=== PATIENT | male | born 1945 | race Caucasian/White ===

== ENCOUNTER 2019-06-01 12:26 | Outpatient (CLI) | payer OTHER, SELFPAY ==
--- NOTE | 2019-06-01 12:33 | XR_ITS ---
WS: [id number] RIGHT RIBS, MULTIPLE VIEWS WITH PA CHEST HISTORY: accidental fall COMPARISON: None available. Lungs and mediastinum: Eventration of the RIGHT hemidiaphragm. Lungs are clear. No pneumothorax or pu lmonary contusion. Ribs: Very slight irregularity involving the anterior RIGHT 10th rib could be a nondisplaced fracture . XR/XR ribs RT mn 3V w CXR1V [id number] IMPRESSION: Suspect anterior RIGHT 10th rib fracture. Correlate with area of tenderness.
--- NOTE | 2019-06-01 12:34 | XR_ITS ---
WS: [id number] RIGHT SHOULDER: 3 VIEW(S) TECHNIQUE: Internal and external rotation with Y view. HISTORY: accidental fall COMPARISON: None available. No fracture or dislocation or soft tissue abnormality. Mild AC joint and glenohumeral joint arthritis. XR/XR shoulder RT min 2V* [id number] IMPRESSION: No acute RIGHT shoulder fracture identified.
--- NOTE | 2019-06-01 12:34 | XR_ITS ---
WS: [id number] RIGHT HAND: 3 VIEW(S) TECHNIQUE: PA, oblique and lateral. HISTORY: Accidental fall. COMPARISON: None available. No acute fracture or dislocation. Interphalangeal joint space narrowing from arthritis. Moderate degenerative arthritis at the first ca rpometacarpal joint. XR/XR hand RT min 3V* [id number] IMPRESSION: 1. No RIGHT hand fracture. 2. Osteoarthritis.
== END 2019-06-01 12:27 | disposition home or self-care (01) ==
LOC: RAD 12:32
PROVIDERS: Visit Provider Nurse Practitioner Family
DX: M19.041 Primary osteoarthritis, right hand; S22.31XA Fracture of one rib, right side, initial encounter for closed fracture; M25.511 Pain in right shoulder; W10.8XXA Fall (on) (from) other stairs and steps, initial encounter
CPT/HCPCS: 71101; 73030; 73130

== ENCOUNTER 2019-11-17 14:42 | Outpatient (CLI) | payer OTHER, SELFPAY ==
--- NOTE | 2019-11-17 14:49 | US_ITS ---
WS: [id number] RENAL ULTRASOUND HISTORY: CHRONIC KIDNEY DZ-STAGE 3 COMPARISON: None available. TECHNIQUE: 2-D and color Doppler imaging of the kidney submitted. Right kidney: 9.1 cm x 5.7 cm x 5.1 cm. Normal echogenicity with no hydronephrosis or mass. Left kidney: 9.5 cm x 4.5 cm x 5.5 cm. Normal size kidney. Exophytic cyst from the mid kidney measures 3.1 x 2.8 x 3.8 cm. No solid mass or obstruction. Aorta: Normal. Urinary Bladder: Normal distention. US/US renal BI* [id number] IMPRESSION: 1. No significant renal atrophy or obstruction. 2. Simple LEFT renal cyst maximum diameter 3.1 cm. 3. Negative urinary bladder.
== END 2019-11-17 14:43 | disposition home or self-care (01) ==
LOC: RAD 14:45
PROVIDERS: Visit Provider Registered Nurse
DX: N28.1 Cyst of kidney, acquired; N18.30 Chronic kidney disease, stage 3 unspecified
CPT/HCPCS: 76770

== ENCOUNTER → 2020-06-13 09:45 | Outpatient (BNVA) | payer OTHER, SELFPAY | PROVIDERS: Visit Provider Family Medicine Adult Medicine | DX: M79.89 Other specified soft tissue disorders (principal); M79.662 Pain in left lower leg | CPT/HCPCS: 73590 ==

== ENCOUNTER → 2021-01-24 12:33 | Outpatient (BNVA) | payer OTHER, SELFPAY | PROVIDERS: Visit Provider Internal Medicine | DX: E11.65 Type 2 diabetes mellitus with hyperglycemia (principal); Z86.73 Personal history of transient ischemic attack (TIA), and cerebral infarction without residual deficits; Z79.4 Long term (current) use of insulin; Z87.891 Personal history of nicotine dependence | CPT/HCPCS: 99204 ==

== ENCOUNTER → 2021-04-25 13:17 | Outpatient (BNVA) | payer OTHER, SELFPAY | PROVIDERS: Visit Provider Internal Medicine | DX: E11.65 Type 2 diabetes mellitus with hyperglycemia (principal); Z86.73 Personal history of transient ischemic attack (TIA), and cerebral infarction without residual deficits; Z79.4 Long term (current) use of insulin; Z79.84 Long term (current) use of oral hypoglycemic drugs; Z87.891 Personal history of nicotine dependence | CPT/HCPCS: 99214 ==

== ENCOUNTER 2023-07-30 22:16 | Inpatient (IN) | payer OTHER, MEDICARE, MEDICAID, SELFPAY ==
[2023-07-30 22:18] VITALS: BP 112/81; PULSE 110; RESP 28; O2SAT 94
--- NOTE | 2023-07-30 22:19 | XRR_ITS ---
PROCEDURE INFORMATION: Exam: XR Chest Exam date and time: 07/30/2023 10:31 PM Age: 77 years old Clinical indication: Other: Respiratory distress; Additional info: Dyspnea TECHNIQUE: Imaging protocol: Radiologic exam of the chest. Views: 1 view. COMPARISON: CR XR ribs RT mn 3V w CXR1V [id number] 06/01/2019 12:38 PM FINDINGS: Lungs: Bilateral airspace opacifications suggestive of alveolar edema and/or bronchopneumonia, please correlate clinically. Pleural spaces: Trace right pleural effusion. Heart/Mediastinum: Unremarkable. No cardiomegaly. Bones/joints: Unremarkable. XR/XR chest 1V portable [id number] IMPRESSION: 1. Bilateral airspace opacifications suggestive of alveolar edema and/or bronchopneumonia, please correlate clinically. 2. Trace right pleural effusion.
--- NOTE | 2023-07-30 22:31 | ED_ITS ---
HPI - SOB/Dyspnea 2 General: Chief Complaint: Shortness of Breath/Dyspnea Stated Complaint: Resp Distress Time Seen by Provider: 07/30/23 22:21 Source: EMS Mode of arrival: EMS Limitations: altered mental status and physical limitation History of Present Illness: HPI Narrative: Patient arrived via EMS from an respiratory distress. Time of arrival patient is nonverbal is ventilations are being assisted by [id number], EMS states they were called out for respiratory distress. They did state his lungs sounded wet to them they put an inch Nitropaste on his right chest and started him on CPAP. They state the CPAP dropped his saturations into the 50s, CPAP was removed and that is when boiler fireman started assisting with [id number]. Patient unable to give us any additional history. Paperwork from the skilled nursing did not show any CHF or COPD, patient does appear to be an insulin- dependent diabetic and is on Plavix. Patient has a history of CVA TIA and cognitive communication deficit patient is a DNR, it is included in the skilled nursing paperwork. Upon arrival we tried to place patient on lower CPAP/AvAP, he was only on it for probably 2 minutes and then he vomited into the mask, that was taken off patient was put back on nonrebreather 15 L, this is appearing to keep his O2 sat at or above 90. Patient's son. In ER and was at bedside and he provided more detail history. Patient has had multiple TIAs and CVAs in the past. Patient is on Plavix and pravastatin. Patient is a diabetic that is on insulin. Son says yesterday he was alert oriented and talking but today he is not. He is responding by shaking his head a little bit when his son ask him questions which is more than he was when he arrived. Son reiterated that he is a DNR and does not want intubated. Review of Systems 2 General: Reports: ROS unobtainable due to medical condition and ROS unobtainable due to mental status PFSH ED 2 PFSH: Medical History Leg injury Pain and swelling of lower leg Family History Father Arthritis Emphysema of lung Mother Low blood pressure Brother Heart problem Social History Smoking and tobacco/nicotine status: former use of tobacco/nicotine Quit status (tobacco/nicotine): has quit using Second hand smoke exposure: No Alcohol intake: never Substance/Drug Use: never Adopted: No Caregiver/support person: No Lives independently: Yes Household members: none Housing: Apartment Marital status: / Number of children: 3 Number of grandchildren: 7 Highest education level completed: 8th Grade service: Yes Current occupational status: retired Physical Exam 2 Const: OTHER: Patient nonverbal staring straight ahead will retract from painful stimuli, HENMT: COMMON NORMALS: normocephalic, atraumatic and moist oral mucous membranes HEAD & SCALP: normocephalic and atraumatic Eye: OTHER: Will not track with eyes, pupils equal round reactive to light, probable cataract and right eye Chest: COMMONS NORMALS: normal inspection of the chest and normal palpation of entire chest wall Course 2 Vital Signs: Vital signs: Vital Signs Pulse Rate 110 H 07/30/23 23:08 Respiratory Rate 26 H 07/30/23 23:04 Blood Pressure 112/81 07/30/23 22:18 Pulse Oximetry 90 07/30/23 23:08 Oxygen Delivery Me thod Non-Rebreather 07/30/23 23:04 Oxygen Flow Rate 15 07/30/23 23:04 Fraction of Inspir ed Oxygen 100 07/30/23 23:08 MDM - SOB/Dyspnea Medical Decision Making Patient was not given a septic/bolus secondary to pulmonary edema on chest x-ray and elevated BNP Patient arrived via the ambulance in severe respiratory distress being ventilated by assisting with [id number]. Patient was transferred over to BiPAP here which she quickly vomited in and then was transferred back over to nonrebreather 15 L this Is sat upwards of about 90%. Patient was tachycardic with a rate of about 110, lab work was obtained as well as chest x-ray, chest x- ray showed bronchopneumonia and pulmonary edema, patient's white count was 15.5, BUN/creatinine 29 and 1.6, blood glucose 394, lactic acid 6.2, BNP 4345, troponin initial 38, at this time patient is nonverbal but responsive to painful stimuli and will not follow commands. Patient was given 125 mg Solu-Medrol, 8 mg Zofran, 1 DuoNeb breathing treatment, discussed the patient severity with the son that he may not pull through. Son reiterated patient is a DNR/DNI, contacted Dr. Chopra for admission for further evaluation and treatment. We will obtain a CT of the head and abdomen pelvis before transferral to the floor, we will start Zosyn and for his pneumonia. Medical Records I reviewed the patient's medical records. Lab Data I reviewed the patient's lab results. 07/30/23 22:28 07/30/23 22: Labs/Radiology: Radiology Impressions Chest X-Ray 07/30/23 22:19 IMPRESSION: 1. Bilateral airspace opacifications suggestive of alveolar edema and/or bronchopneumonia, please correlate clinically. 2. Trace right pleural effusion. Laboratory Results WBC 15.59 10^3/uL (3.29-11.43) H 07/30/23 22: RBC 6.09 10^6/uL (3.85-5.65) H 07/30/23 22: Hgb 16.10 g/dL (11.27-16.99) 07/30/23 22: Hct 50.0 % (37-53) 07/30/23: MCV 82.1 fl (82-101) 07/30/23: MCH 26.4 pg (27-33) L 07/30/23: MCHC 32.2 g/dL (30-55) 07/30/23: RDW 14.1 % (12.1-15.1) 07/30/23: Plt Count 567 10^3/cmm (157-399) H 07/30/23: MPV 9.2 fL (7.4-10.4) 07/30/23: Neut % (Auto) 47.7 % 07/30/23: Lymph % (Auto) 44.9 % 07/30/23: [place] % (Auto) 4.0 % 07/30/23 22: Eos % (Auto) 2.1 % 07/30/23: Baso % (Auto) 0.8 % 07/30/23: Neut # (Auto) 7.43 10^3/uL (1.8-7.7) 07/30/23 22:28 Lymph # (Auto) 7.0 10^3/uL (0.8-4.8) H 07/30/23 22:28 [place] # (Auto) 0.6 10^3/uL (0.2-0.9) 07/30/23 22:28 Eos # (Auto) 0.3 10^3/uL (0.0-0.8) 07/30/23 22: Baso # (Auto) 0.1 10^3/uL (0.0-0.1) 07/30/23 22: Nucleated RBC % (auto) 0.3 % 07/30/23 22: Nucleated RBCs # 0.0 /100WBC 07/30/23 22: PT 13.90 SECONDS (12.1-14.9) 07/30/23 22: INR 1.04 (0.8-1.2) 07/30/23 22: Specimen Type Arterial 07/30/23 22:52 Sample Site Radial, right 07/30/23 22:52 ABG pH 7.32 (7.35-7.45) L 07/30/23 22:52 ABG pCO2 41.7 mmHg (35-45) 07/30/23 22:52 ABG pO2 61.5 mmHg (80.0-100.0) L 07/30/23 22:52 ABG HCO3 21.4 mmol/L (22-26) L 07/30/23 22:52 ABG O2 Saturation 88.9 07/30/23 22:52 ABG Base Excess -4.6 mmol/L (-2.0-2.0) L 07/30/23 22:52 Blair Test Pos 07/30/23 22:52 A-a O2 Gradient 4.7 mmHg (5-10) L 07/30/23 22:52 Hematocrit 50.7 % (42-52) 07/30/23 22:52 Hgb O2 Saturation 87.3 % (95-100) L 07/30/23 22:52 Carboxyhemoglobin 1.5 %THgb (0.4-20.1) 07/30/23 22:52 Methemoglobin 0.3 % (0.4-1.5) L 07/30/23 22:52 Total Hemoglobin 16.5 g/dL (14-18) 07/30/23 22:52 Sodium 135.0 mmol/L (131-143) 07/30/23 22:52 Potassium 3.6 mmol/L (3.5-5.0) 07/30/23 22:52 Glucose 382.0 mg/dL (70-115) H 07/30/23 22:52 Ionized Calcium 1.1 mmol/L (1.1-1.4) 07/30/23 22:52 O2 Delivery Device Nrb 07/30/23 22:52 O2 Liters/Min 15.0 % 07/30/23 22:52 Glassie ID [id number] 07/30/23 22:52 Sodium 133 mmol/L (136-145) L 07/30/23 22:28 Potassium 3.5 mmol/L (3.5-5.1) 07/30/23 22:28 Chloride 93 mmol/L (98-107) L 07/30/23 22:28 Carbon Dioxide 19 mmol/L (22-29) L 07/30/23 22:28 Anion Gap 24.5 (5-19) H 07/30/23 22:28 BUN 29 mg/dL (8-23) H 07/30/23 22:28 Creatinine 1.6 mg/dL (0.7-1.2) H 07/30/23 22:28 GFR Calculation Not Reportable 07/30/23 22:28 Glucose 394 mg/dL (65-115) H 07/30/23 22:28 Calculated Osmolality 298 mOsm/kg (285-295) H 07/30/23 22:28 Lactic Acid 6.2 mmol/L (0.5-2.2) H* 07/30/23 22:28 Calcium 9.2 mg/dL (8.5-10.5) 07/30/23 22:28 Magnesium 2.7 mg/dL (1.7-2.3) H 07/30/23 22:28 Total Bilirubin 0.3 mg/dL (0.15-1.2) 07/30/23 22:28 AST 18 U/L (0-40) 07/30/23 22:28 ALT 14 U/L (0-41) 07/30/23 22:28 Alkaline Phosphatase 122 U/L (40-130) 07/30/23 22:28 Troponin T Baseline 38 ng/L (0-15) H 07/30/23 22:28 NT-Pro-B Natriuret Pep 4345 pg/mL (0-450) H 07/30/23 22:28 Total Protein 7.2 g/dL (6.6-8.7) 07/30/23 22:28 Albumin 4.2 g/dL (3.5-5.2) 07/30/23 22:28 Globulin 3.0 g/dL (1.3-4.6) 07/30/23 22:28 Procalcitonin 0.06 ng/mL (0-0.5) 07/30/23 22:28 All radiology interpretation(s) finalized by discharge Discharge Plan Discharge Patient Disposition: Admitted As Inpatient Clinical Impression: Acute hypoxemic respiratory failure, History of multiple cerebrovascular accidents (CVAs) Pneumonia Qualifiers: Pneumonia type: due to unspecified organism Laterality: bilateral Lung location: unspecified part of lung Qualified Code(s): J18.9 - Pneumonia, unspecified organism Pulmonary edema Qualifiers: Chronicity: acute Qualified Code(s): J81.0 - Acute pulmonary edema Altered mental status Qualifiers: Altered mental status type: unspecified Qualified Code(s): R41.82 - Altered mental status, unspecified Condition: Stable Coding Level of Care Code ED Energy Infrastructure Engineer for Debra Martines
[2023-07-30 22:32] LABS: Basophils # 0.1 10^3/uL (0.0-0.1); Basophils % 0.8 %; Eosinophils # 0.3 10^3/uL (0.0-0.8); Eosinophils % 2.1 %; Lymphocytes % 44.9 %; Mean Corpuscular HGB Conc 32.2 g/dL (30-55); Mean Corpuscular Hemoglobin 26.4 pg (27-33); Mean Corpuscular Volume 82.1 fl (82-101); Mean Platelet Volume 9.2 fL (7.4-10.4); Monocytes # 0.6 10^3/uL (0.2-0.9); Neutrophils # 7.43 10^3/uL (1.8-7.7); Neutrophils % 47.7 %; Nucleated Red Blood Cells % 0.3 %; Platelet Count 567 10^3/cmm (157-399); Red Blood Count 6.09 10^6/uL (3.85-5.65); Red Cell Distribution Width 14.1 % (12.1-15.1); White Blood Count 15.59 10^3/uL (3.29-11.43)
[2023-07-30] MEDS: methylPREDNISolone sod succ 125 mg/2 mL INJ IVP (22:33)
[2023-07-30] MEDS: ondansetron 2 mg/ML SDV 2 mL 8 MG IVP (22:34)
--- NOTE | 2023-07-30 22:44 | ECG_ITS ---
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 Measurements Intervals [place] Rate: 99 P: 5 WV: 201 QRS: 1 QRSD: 162 T: 164 QT: 437 QTc: 561 Interpretive Statements SINUS RHYTHM LEFT BUNDLE BRANCH BLOCK [120+ ms QRS DURATION, 80+ ms Q/S IN V1/V2, 85+ ms R IN I/aVL/V5/V6] No previous ECG available for comparison Electronically Signed On 07-31-2023 19:01:12 CDT by Yuridia Melo M.D. [email or web address] [email or web address] medical [email or web address] [id number]
[2023-07-30 22:46] LABS: INR 1.04 (0.8-1.2)
[2023-07-30 22:52] LABS: Troponin(5th) Baseline 38 ng/L (0-15)
[2023-07-30 23:01] LABS: NT Pro B Type Natriuretic Pept 4345 pg/mL (0-450); Procalcitonin 0.06 ng/mL (0-0.5)
[2023-07-30 23:02] LABS: ABG PCO2 41.7 mmHg (35-45); ABG PH Result 7.32 (7.35-7.45); Alveolar-Arterial Oxygen Gradi 4.7 mmHg (5-10); Arterial Blood Gas Hematocrit 50.7 % (42-52); Base Excess ABG -4.6 mmol/L (-2.0-2.0); Blood Gas Allen Test Pos; Blood Gas Sample Site Radial, right; Blood Gas Sample Type Arterial; Carboxyhemoglobin 1.5 %THgb (0.4-20.1); HCO3 ABG 21.4 mmol/L (22-26); HGB O2 Sat 87.3 % (95-100); Ionized Calcium Level - ABG 1.1 mmol/L (1.1-1.4); Methemoglobin 0.3 % (0.4-1.5); Oxygen Device NRB; Oxygen Saturation ABG 88.9; PO2 ABG 61.5 mmHg (80.0-100.0); Potassium Level - ABG 3.6 mmol/L (3.5-5.0); Total Hemoglobin 16.5 g/dL (14-18)
[2023-07-30 23:03] LABS: Slide Review Slide Review Perform
[2023-07-30 23:04] VITALS: PULSE 110; RESP 26; O2SAT 90
[2023-07-30] MEDS: ipratropium-albuterol 3 mL Neb INHALATION (23:04)
[2023-07-30 23:08] VITALS: PULSE 110; RESP 16; O2SAT 90
[2023-07-30 23:13] LABS: Alanine Aminotransferase 14 U/L (0-41); Albumin Level 4.2 g/dL (3.5-5.2); Alkaline Phosphatase 122 U/L (40-130); Anion Gap 24.5 (5-19); Aspartate Amino Transferase 18 U/L (0-40); Blood Urea Nitrogen 29 mg/dL (8-23); Calcium 9.2 mg/dL (8.5-10.5); Carbon Dioxide 19 mmol/L (22-29); Chloride 93 mmol/L (98-107); Glucose 394 mg/dL (65-115); Magnesium 2.7 mg/dL (1.7-2.3); Osmolality Calculated 298 mOsm/kg (285-295); Potassium 3.5 mmol/L (3.5-5.1); Sodium 133 mmol/L (136-145); Total Bilirubin 0.3 mg/dL (0.15-1.2); Total Protein 7.2 g/dL (6.6-8.7)
[2023-07-30 23:18] LABS: Lactic Sepsis W/Reflex 6.2 mmol/L (0.5-2.2)
--- NOTE | 2023-07-30 23:39 | CTR_ITS ---
PROCEDURE INFORMATION: Exam: CT Abdomen And Pelvis With Contrast Exam date and time: 07/31/2023 12:59 AM Age: 77 years old Clinical indication: Nausea and vomiting; Additional info: Leukocytosis, n/v tachycardia TECHNIQUE: Imaging protocol: Computed tomography of the abdomen and pelvis with contrast. Radiation optimization: All CT scans at this facility use at least one of these dose optimization techniques: automated exposure control; mA and/or kV adjustment per patient size (includes targeted exams where dose is matched to clinical indication); or iterative reconstruction. Contrast material: OMNI 350; Contrast volume: 100 ml; Contrast route: INTRAVENOUS (IV); COMPARISON: US renal BI* [id number] 11/17/2019 2:57 PM RADIATION DOSE METRICS: Total DLP (mGy-cm): 683.5 FINDINGS: Lungs: Bilateral dependent airspace infiltrates. Pleural spaces: Moderate bilateral pleural effusions. Coronary arteries: Coronary artery atherosclerotic calcifications. Liver: Normal. No mass. Gallbladder and bile ducts: Normal. No calcified stones. No ductal dilation. Pancreas: Normal. No ductal dilation. Spleen: Normal. No splenomegaly. Adrenal glands: Normal. No mass. Kidneys and ureters: Right kidney chronic atrophy. Left kidney demonstrates several cysts, negative follow-up advised. Stomach and bowel: Prominent fluid in the stomach, small bowel and colon may reflect a gastro enterocolitis. Diverticulosis without diverticulitis. Appendix: No evidence of appendicitis. Intraperitoneal space: Unremarkable. No free air. No significant fluid collection. 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 Lymph nodes: Edema in the central abdominal mesentery with subcentimeter lymph nodes suggestive of a chronic inflammatory process such as sclerosing mesenteritis. Urinary bladder: Unremarkable as visualized. Reproductive: Prostate gland somewhat enlarged, please correlate clinically. Bones/joints: L1 vertebral body compression deformity without retropulsion of bony fragments. L4 vertebral body sclerotic bony lesion appears nonaggressive, whole body nuclear medicine bone scan could further characterize this. Soft tissues: Unremarkable. CT/CT abdomen pelvis w con* [id number] IMPRESSION: 1. Prominent fluid in the stomach, small bowel and colon may reflect a gastro enterocolitis. 2. Prostate gland somewhat enlarged, please correlate clinically. 3. L1 vertebral body compression deformity without retropulsion of bony fragments. 4. 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 5. Edema in the central abdominal mesentery with subcentimeter lymph nodes suggestive of a chronic inflammatory process such as sclerosing mesenteritis. 6. Moderate bilateral pleural effusions. 7. Bilateral dependent airspace infiltrates. 8. Coronary artery atherosclerotic calcifications. 9. Diverticulosis without diverticulitis. 10. Right kidney chronic atrophy. 11. Left kidney demonstrates several cysts, negative follow-up advised. 12. L4 vertebral body sclerotic bony lesion appears nonaggressive, whole body nuclear medicine bone scan could further characterize this. COMMENTS: Consistent with the [employer]'s Incidental Findings Committee white paper (J Am Velia Radiol 2018): Any incidental renal lesion less than 1 cm or classified as too small to characterize, or any incidental cystic renal lesion characterized as simple-appearing, is likely benign. No follow-up imaging is recommended for these lesions per consensus recommendations based on imaging criteria.
--- NOTE | 2023-07-30 23:39 | CTR_ITS ---
PROCEDURE INFORMATION: Exam: CT Head Without Contrast Exam date and time: 07/31/2023 12:56 AM Age: 77 years old Clinical indication: Altered mental status/memory loss; Additional info: AMS HX of multiple cvas TECHNIQUE: Imaging protocol: Computed tomography of the head without contrast. Radiation optimization: All CT scans at this facility use at least one of these dose optimization techniques: automated exposure control; mA and/or kV adjustment per patient size (includes targeted exams where dose is matched to clinical indication); or iterative reconstruction. COMPARISON: No relevant prior studies available. RADIATION DOSE METRICS: Total DLP (mGy-cm): 1041 FINDINGS: Brain: Large amount of diffuse white matter disease likely reflecting chronic microvascular ischemic changes. Bilateral chronic lacunar infarcts in the basal ganglia and thalami. Cerebral ventricles: No ventriculomegaly. Paranasal sinuses: Visualized sinuses are unremarkable. No fluid levels. Mastoid air cells: Visualized mastoid air cells are well aerated. Bones: Unremarkable. No acute fracture. Soft tissues: Unremarkable. CT/CT head wo con* [id number] IMPRESSION: 1. Negative for intracranial hemorrhage or mass effect 2. Large amount of diffuse white matter disease likely reflecting chronic microvascular ischemic changes. 3. Bilateral chronic lacunar infarcts in the basal ganglia and thalami.
[2023-07-30] MEDS: piperacillin-tazobactam 3.375 GM in sodium chloride 0.9% (plus) 50 ML IV (23:49)
[2023-07-31] VITALS (18 sets, daily range): BP systolic 107–142; BP diastolic 68–82; PULSE 72–90; RESP 16–24; TEMP 36.4–36.8; O2SAT 90–99; BMI 24.3
[2023-07-31 00:18] LABS: Reflex Lactate Order REFLEX LACTIC ORDERD
--- NOTE | 2023-07-31 00:36 | PC.NURSE ---
Son at bedside states that the patient has history of TIA and stroke in the past. Pt. starting to verbalize some response to questions.
[2023-07-31 00:57] LABS: Lactic Acid level (Lactate) 2.2 mmol/L (0.5-2.2)
[2023-07-31 01:03] LABS: Troponin 5 2HR 161.5 ng/L (0-15); Troponin 5 2HR Delta 123.5 ABS# (0-10)
[2023-07-31] MEDS: iohexol 350 mg/mL 500 mL Btl (per mL) IV (01:30)
[2023-07-31] MEDS: vancomycin 1,000 MG in sodium chloride 0.9% 250 ML 250 MG IV (01:49)
--- NOTE | 2023-07-31 01:59 | ECG_ITS ---
[facility] Test Date: 2023-07-31 Pat Name: Eduard Higgins Department: Room: 275 Gender: Male Procedures Nurse: : 1945 Requested By: Eduard Omalley Order Number: [id number] Adal MD: Yuridia Melo M.D. Measurements Intervals [place] Rate: 70 P: 26 AL: 243 QRS: -16 QRSD: 162 T: 155 QT: 490 QTc: 532 Interpretive Statements SINUS RHYTHM WITH FIRST DEGREE AV BLOCK LEFT BUNDLE BRANCH BLOCK [120+ ms QRS DURATION, 80+ ms Q/S IN V1/V2, 85+ ms R IN I/aVL/V5/V6] Compared to ECG 07/30/2023 22:44:27 First degree AV block now present Electronically Signed On 07-31-2023 19:15:13 CDT by Yuridia Melo M.D. [email or web address] state hospitalBridgeXswood county [id number]
--- NOTE | 2023-07-31 03:26 | P.HP_ITS ---
Providers/Chief Complaint 2 Admitting Physician: Tammie Chopra MD Chief Complaint: Resp Distress History of Present Illness Eduard Higgins is a 77 year old male longterm resident, history of recurrent TIAs, longterm resident, diabetes mellitus was brought to the emergency room today via EMS due to a change in mental status and respiratory distress. At the time the patient was evaluated by EMS he was noted to be in respiratory distress. They needed to [id number] upon initial arrival, his O2 saturations were in the 50s. They had to place him on a BiPAP as patient is a DNR/DNI. Patient was apparently in his usual state of health until yesterday. Patient has a history of CVAs/TIA and has some issues with aphasia, but per history from son he is able to communicate. He was eventually able to be weaned down to nonrebreather at 15 L with O2 sat maintained at 90%. Patient is unable to participate in any history taking. Unknown if he has recently been ill. His EKGs were noted to have diffuse ST depression in leads I,II, v5, v6. Per patient's son there is no known history of heart disease. No history of CAD. Patient's troponin has been trending up during the course. Baseline troponin was at 38, at 2 hours trended up to 160, trending up to 461 with positive delta's of 123 and 423. HE had elevated lactate 6.6, leukocytosis of 15,000. ROS + for vomiting. Patient had vomited after being placed on BiPAP in the emergency room. He is therefore not being placed back on BiPAP. Currently on heated high flow. Review of Systems 2 General: Reports: 10 or more systems reviewed and unremarkable except in HPI and below Const: Denies: fever(s), chills or body aches Eyes: Denies: change in vision, blurry vision or photophobia ENMT: Reports: hoarseness; Denies: throat pain, enlarged tonsils, odynophagia or nasal congestion Card: Denies: chest pain, palpitations, irregular heart rhythm, edema, swelling of feet/ankles, lightheadedness, pre-syncope, dyspnea on exertion or orthopnea Resp: Denies: dyspnea, productive cough, non-productive cough, wheezing, stridor, pain on inspiration, change in phlegm color, hemoptysis or chest congestion GI: Denies: abdominal pain, nausea, vomiting, hematemesis, coffee ground emesis, dysphagia, heartburn, diarrhea, constipation, GI cramping, change in stool character, hematochezia or melena : Denies: flank pain, dysuria, urinary frequency, urinary urgency, urinary hesitancy or hematuria Musc: Denies: neck pain, back pain, extremity pain, joint swelling, joint warmth or deformity Neuro: Denies: headache(s), numbness in extremities, weakness in extremities, sensory changes, difficulty walking, frequent falls, dizziness, vertigo, behavioral changes, Slurred speech present or seizure-like activity Psych: Denies: anxiety, depression, suicidal ideation or homicidal ideation Endo: Denies: polyuria, polydipsia, tired all the time, cold intolerance or hot flashes Chapin/Lymph: Denies: easy bruising or easy bleeding Medications/Allergies Home Medications Medication Instructions Recorded Confirmed Last Taken Type cholecalciferol (vitamin D3) 25 mcg PO 06/13/20 04/25/21 Unknown History empagliflozin [Jardiance] 25 mg PO 06/13/20 04/25/21 Unknown History pravastatin 40 mg tablet 40 mg PO DAILY 06/13/20 04/25/21 Unknown History aspirin 81 mg tablet,delayed 81 mg PO DAILY 01/24/21 04/25/21 Unknown History release clopidogrel 75 mg tablet 75 mg PO DAILY 01/24/21 04/25/21 Unknown History gabapentin 100 mg capsule 100 mg PO DAILY PRN 01/24/21 04/25/21 Unknown History glipizide 10 mg tablet, extended 20 mg PO DAILY 01/24/21 04/25/21 Unknown History release 24 hr lisinopril 40 tab PO 01/24/21 04/25/21 Unknown History flash glucose scanning reader #1 ea 05/06/21 Unknown Rx (FreeStyle Heaven 2 Turner) flash glucose sensor (FreeStyle #1 ea 05/06/21 Unknown Rx Heaven 2 Sensor kit) insulin glargine 100 unit/mL 15 unit SUBCUT QAM 05/06/21 Unknown History subcutaneous solution (Lantus U-100 Insulin) Allergies Allergy/AdvReac Type Severity Reaction Status Date / Time No Known Allergies Allergy Verified 04/25/21 13:40 PFSH Acute 2 PFSH: Medical History Leg injury Pain and swelling of lower leg Family History Father Arthritis Emphysema of lung Mother Low blood pressure Brother Heart problem Social History Smoking and tobacco/nicotine status: former use of tobacco/nicotine Quit status (tobacco/nicotine): has quit using Second hand smoke exposure: No Alcohol intake: never Substance/Drug Use: never Adopted: No Caregiver/support person: No Lives independently: Yes Household members: none Housing: Apartment Marital status: / Number of children: 3 Number of grandchildren: 7 Highest education level completed: 8th Grade service: Yes Current occupational status: retired Vitals/I&O/Wt Last Vital Signs Temp 97.6 F 07/31/23 04:21 Pulse 74 07/31/23 04:30 Resp 22 H 07/31/23 04:30 BP 135/82 07/31/23 04:21 Pulse Ox 94 07/31/23 06:21 O2 Del Method Heated High Flow 07/31/23 06:21 O2 Flow Rate 35 07/31/23 06:21 FiO2 65 07/31/23 06:21 07/30/23 07/30/23 07/31/23 14:59 22:59 06:59 Intake Total 300 / 300 Balance 300 / 300 Weight last 48 hrs Weight 69.173 kg Weight 68.356 kg Physical Exam 2 Narrative: General: Ill-appearing, frail, nonverbal HEENT: PERRLA, pupils bilaterally equal and reactive, pallors not present Chest: Crackles to auscultation bilaterally CVS: S1-S2 regular, no murmurs, no tachycardia, no gallops, no rubs Abdomen: Soft, nontender, no organomegaly, bowel sounds present Neuro: Unable to neuroexam. Patient does not follow directions for a focal neuroexam. Data 07/30/23 22:28 07/30/23 22:28 Micro: Microbiology 07/30/23 22:41 Blood Culture - Preliminary Blood SPECIMEN COLLECTED 07/30/23 22:48 Blood Culture - Preliminary Blood SPECIMEN COLLECTED A&P Assessment and plan (1) NSTEMI (non-ST elevated myocardial infarction): (2) Pulmonary edema: Qualifiers: Chronicity: acute Qualified Code(s): J81.0 - Acute pulmonary edema (3) Pneumonia: Qualifiers: Laterality: bilateral Lung location: unspecified part of lung P neumonia type: due to unspecified organism Qualified Code(s): J18.9 - Pneumonia, unspecified organism (4) Acute hypoxemic respiratory failure: (5) Altered mental status: Qualifiers: Altered mental status type: unspecified Qualified Code(s): R41.82 - Altered mental status, unspecified Plan 77-year-old male presenting today with altered mental status, acute respiratory distress, found to have bilateral diffuse infiltrates on chest x-ray which 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 # NSTEMI EKG showing ST segment depressions as noted above. Increasing troponin trend 38--> at 2 hours trended up to 160, trending up to 461 with positive delta's of 123 and 423. No known past history of coronary artery disease. Start Lovenox 1 mg/kg subcutaneously every 12 hours. Aspirin 300 mg given rectally now Start Plavix 300 mg x 1 followed by 75 mg p.o. daily once patient able to tolerate p.o. intake safely. Start atorvastatin 40 mg p.o. daily Mental status does appear to be somewhat improved compared to posterior presentation. At the time of my assessment patient is able to answer his name is Eduard, says okay when provided with the information of pneumonia and cardiac issues. Disoriented as to his whereabouts. Echocardiogram ordered. Cardiology consultation to assess for possible angiogram, though will likely need to be optimized prior to angiogram as currently high oxygen requirements would preclude him being able to lay flat. Additionally creatinine at 1.61 unknown Baseline? Acute kidney injury Discussed the possibility of angiogram with son, he will need to think about if his father would have wanted invasive procedures. 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 Currently blood pressure is soft, 100 systolic, assess response for 20 mg Lasix, may need further doses depending on blood pressure and urine output response Place Jeong catheter to assess accurate output. Supplemental O2, currently on heated high flow with FiO2 of 65% at 35 L/min. He was vomiting upon initial arrival and had vomited on the BiPAP. Given his poor mentation and vomiting on BiPAP, would avoid placing him on the same again. # Leukocytosis, elevated lactate, acute hypoxemia may point towards developing sepsis. Source may be pneumonia versus gastroenteritis as seen on CT of the abdomen and pelvis. Start empiric antibiotic coverage with piperacillin/tazobactam and vancomycin while undergoing infectious evaluation. Blood and urine cultures taken and pending Check urine bacterial antigen. And respiratory panel. Serial lactate trending down at 2.2 Would not give him any IV fluids given pulmonary edema. # Diabetes mellitus: Insulin sliding scale while in the hospital. Hold OHA's. # Acute kidney injury, creatinine at 1.6 today, unknown past baseline, presumably acute kidney injury given no reported history of CKD in the past. Hold lisinopril. DVT prophylaxis: Currently on full dose Lovenox DNR/DNI Attestations 2 Medical Necessity Statement*: Greater than 2 midnight admission is anticipated given multiple comorbidities as listed above. Coding Level of Care Code Acute Code for Chg Fwd High MDM includes number and complexity of problems actively addressed during encounter, amount and/or complexity of data reviewed/ordered and described risk of complication, morbidity or mortality of management as documented Diagnoses NSTEMI (non-ST elevated myocardial infarction) I21.4 Pulmonary edema J81.0 Chronicity: acute Pneumonia J18.9 Laterality: bilateral Lung location: unspecified part of lung Pneumonia type: due to unspecified organism Acute hypoxemic respiratory failure J96.01 Altered mental status R41.82 Altered mental status type: unspecified
--- NOTE | 2023-07-31 04:26 | USCV_ITS ---
Eduard Higgins Age: 77 Gender: M : 1945 Exam Date: 07/31/2023 08:40 Ordering Phys: Tammie Chopra MD Technologist: MIRTA Exam Location: [facility] – [place] Indication: nstemi BP: 142 / 81 HR: 99 Rhythm: Atrial fibrillation Technical Quality: Adequate MEASUREMENTS (Male / Female) Normal Values 2D ECHO LVOT Diameter 2.2 cm LV Ejection Fraction MOD 2C 36.6 % LV Ejection Fraction 2C AL 36.2 % LA Diameter 3.7 cm RA Systolic Volume 4C AL 26.4 ml RA Systolic Volume 4C MOD 25.2 ml LA Sys Volume AL 49.9 cm cubed LA Sys Volume Index AL 27.6 cm cubed/m squared Aorta at Sinotubular Diameter 2.3 cm M-MODE LA Ao Ratio MM 1.5 AV Cusp Separation MM 1.9 cm DOPPLER AV Peak Velocity 117.0 cm/s LVOT Peak Velocity 86.0 cm/s AV Area Cont Eq vti 3.2 cm squared AV Area Cont Eq pk 2.9 cm squared MV Peak Velocity 124.0 cm/s TR Peak Velocity 114.0 cm/s TR Peak Gradient 5.2 mmHg TV Peak E Velocity 88.0 cm/s Right Atrial Pressure 3.0 mmHg Pulmonary Artery Systolic Pressu 8.2 mmHg FINDINGS Left Ventricle Moderate hypokinesia of the mid and apical inferolateral segment. And anteroseptal segments. Severe hypokinesis of the LV apex. Moderate diffuse hypokinesia of the septum and inferior wall segments. LV ejection fraction of 37% Right Ventricle Normal right ventricular size and systolic function. Right Atrium Normal right atrial size. Left Atrium Mildly increased left atrial size. Mitral Valve Mild mitral annular calcification. Aortic Valve Minimally thickened Tricuspid Valve No gross abnormalities noted Pulmonic Valve Pulmonic valve not well visualized. Pericardium No pericardial effusion. Aorta Normal ascending aorta dimension. IVC The inferior vena cava appears normal. CONCLUSIONS Multiple wall motion abnormalities with a diminished ejection fraction of 37%. Mildly increased left atrial size. Minimally thickened aortic and mitral valves. There is no pericardial effusion. There are no intracardiac masses. Technically somewhat difficult study because of poor ultrasonic window No similar previous studies are available for comparison Dr Yuridia Melo MD [facility] (Electronically Signed) Final Date: 31 July 2023 10:14 S
[2023-07-31 04:37] LABS: Ketone (Acetest) Serum Negative (Negative)
--- NOTE | 2023-07-31 04:39 | ECG_ITS ---
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 Measurements Intervals [facility] Rate: 71 P: -5 VT: 239 QRS: -26 QRSD: 165 T: 163 QT: 472 QTc: 515 Interpretive Statements SINUS RHYTHM WITH FIRST DEGREE AV BLOCK LEFT BUNDLE BRANCH BLOCK [120+ ms QRS DURATION, 80+ ms Q/S IN V1/V2, 85+ ms R IN I/aVL/V5/V6] Compared to ECG 07/31/2023 01:59:50 No significant changes Electronically Signed On 07-31-2023 19:15:22 CDT by Yuridia Melo M.D. [email or web address]
[2023-07-31 04:45] LABS: Troponin 5 6HR 461.3 ng/L (0-15); Troponin 5 6HR Delta 423.3 ng/L (0-12)
[2023-07-31] MEDS: aspirin 300 mg Supp PR (05:12)
[2023-07-31] MEDS: enoxaparin 60 mg/0.6 mL Syringe SUBCUT ×2 (05:12→16:02)
[2023-07-31 06:34] LABS: Glucose Point of Care 244 mg/dL (70-110)
[2023-07-31 07:40] LABS: Adenovirus Not Detected (NOT DETECT); Chlamydia Pneumoniae Not Detected (NOT DETECT); Coronavirus 229E,HKU1,NL63,OC4 Not Detected (NOT DETECT); Human Metapneumovirus Not Detected (NOT DETECT); Human Rhinovirus/Enterovirus Not Detected (NOT DETECT); Influenza A Not Detected (NOT DETECT); Influenza A H1 Not Detected (NOT DETECT); Influenza A H1-2009 Not Detected (NOT DETECT); Influenza A H3 Not Detected (NOT DETECT); Influenza B Not Detected (NOT DETECT); Mycoplasma Pneumoniae Not Detected (NOT DETECT); Parainfluenza Virus Type 1 Not Detected (NOT DETECT); Parainfluenza Virus Type 2 Not Detected (NOT DETECT); Parainfluenza Virus Type 3 Not Detected (NOT DETECT); Parainfluenza Virus Type 4 Not Detected (NOT DETECT); Respiratory Syncytial Virus A Not Detected (NOT DETECT); Respiratory Syncytial Virus B Not Detected (NOT DETECT); SARS-COV-2 Not Detected (NOT DETECT)
[2023-07-31] MEDS: ipratropium-albuterol 3 mL Neb INHALATION ×3 (08:01→20:30)
--- NOTE | 2023-07-31 08:33 | P.CONIM_ITS ---
Providers/Reason For Consult 2 Consulting Physician/Specialty*: Dr. KASEY Melo/cardiology Reason for Consult*: Patient with respiratory distress and elevated troponin T Requesting Physician: Dr. Chopra/Dr. Connor Attending Physician: José Luis Connor MD History of Present Illness History of Present Illness Eduard Higgins is a 77 year old male is admitted to hospital through the emergency room where he presented with respiratory distress. He was found to have features of pneumonia. He was found to elevated troponin T with significant delta and abnormal EKG. he also was found to have altered mental status. He is admitted to hospital for further evaluation management. At the time of my examination, patient seems to be alert and oriented to place and person. He was able to give some short answers to the questions. And answers were appropriate. Most of the information is from the medical records and also from his younger son. This patient has a history of hypertension and dyslipidemia for the last more than 20 years. Also has a history of diabetes for the last 15 years or so. He used to be followed by a service aide for his a chronic kidney disease, possibly from diabetes. He has been in the senior care for the last more than 4 years because of his recurrent TIA. When he gets a TIA, he loses control of his bowel and bladder. He also has difficulty in ambulation. He is in the senior care, mainly because of the multiple CVAs. Patient has no previous history for any coronary artery disease, myocardial infarction or congestive heart failure. He been having some amount of shortness of breath for the last couple of days. His shortness of breath has gotten acutely worse yesterday. He was found to be in respiratory distress. So he was brought to the emergency room by the ambulance. Patient has DNR status. He did not want to be intubated. He is on a high flow oxygen. His oxygenation seems to be improving. The chest x-ray revealed bilateral airspace densities and some pleural effusion. He had an echocardiogram which revealed multiple wall motion abnormalities with a diminished ejection fraction of 37%. The EKG revealed sinus rhythm with a left bundle branch block and ST-T changes in the anterolateral leads suggestive of ischemia. His baseline troponin T was 38 with a 2-hour delta of 123 and a 6-hour delta of 423. The chest x-ray also revealed features of congestive heart failure. According the patient, he had chest pains/tightness last night. The pain was radiating across the chest. He is not able to give any other details. Apparently he never had similar chest pains in the past According the patient, One of his brothers had a heart attack. Other details are not available. Review of Systems 2 Narrative: CONSTITUTIONAL: No fever or chills. EYES: No blurring of vision or other visual disturbances lately. ENT: No hoarseness of voice, auditory disturbances or sore throat. CARDIOVASCULAR: As mentioned above. RESPIRATORY: As mentioned above GASTROINTESTINAL: No hematemesis or melena. GENITOURINARY: History of chronic renal disease and used to be followed by nephrology. INTEGUMENTARY: No skin rashes or history of skin cancer. NEURO: No transient ischemic attacks or amaurosis. PSYCHIATRIC: No history of psychosis or major depression. HEMATOLOGIC: No bleeding disorders or significant anemia. ENDOCRINE: Type 2 diabetes for the last more than 15 years. MUSCULOSKELETAL: No recent joint pain or swelling. ALLERGY/IMMUNOLOGY: As mentioned above. Medications/Allergies Home Medications Medication Instructions Recorded Confirmed Last Taken Type pravastatin 40 mg tablet 40 mg PO BEDTIME 06/13/20 07/31/23 Unknown History clopidogrel 75 mg tablet 75 mg PO DAILY 01/24/21 07/31/23 Unknown History flash glucose scanning reader #1 ea 05/06/21 07/31/23 Unknown Rx (FreeStyle [place] 2 [place]) flash glucose sensor (FreeStyle #1 ea 05/06/21 07/31/23 Unknown Rx Heaven 2 Sensor kit) acetaminophen 325 mg tablet 650 mg PO Q4H PRN Pain, Moderate 07/31/23 07/31/23 Unknown History amlodipine 10 mg tablet 10 mg PO DAILY 07/31/23 07/31/23 Unknown History aspirin 325 mg tablet 325 mg PO QAM 07/31/23 07/31/23 Unknown History docusate sodium 100 mg tablet 200 mg PO BEDTIME 07/31/23 07/31/23 Unknown History empagliflozin 25 mg tablet 25 mg PO QAM 07/31/23 07/31/23 Unknown History (Jardiance) fluticasone propionate 50 1 spray intranasal BID 07/31/23 07/31/23 Unknown History mcg/actuation nasal spray,suspension food supplemt, lactose-reduced 1 ea PO TID 07/31/23 07/31/23 Unknown History hydrochlorothiazide 25 mg tablet 50 mg PO DAILY 07/31/23 07/31/23 Unknown History insulin aspart U-100 100 unit/mL See Rx Instructions .Route .COMPLEX 07/31/23 07/31/23 Unknown History (3 mL) subcutaneous pen (Novolog FlexPen U-100 Insulin aspart) insulin glargine 100 unit/mL (3 30 unit SUBCUT BEDTIME 07/31/23 07/31/23 07/29/23 History mL) subcutaneous pen (Basaglar KwikPen U-100 Insulin) loratadine 10 mg tablet (Claritin) 10 mg PO DAILY 07/31/23 07/31/23 Unknown History magnesium hydroxide 400 mg/5 mL 30 ml PO DAILY PRN Constipation 07/31/23 07/31/23 Unknown History oral suspension (Milk of Magnesia) metoprolol tartrate 100 mg tablet 100 mg PO BID 07/31/23 07/31/23 Unknown History polyethylene glycol 3350 17 See Rx Instructions .Route 07/31/23 07/31/23 Unknown History gram/dose oral powder (Miralax) .COMPLEX PRN Constipation potassium chloride 20 mEq 20 meq PO DAILY 07/31/23 07/31/23 Unknown History tablet,extended release(part/cryst) Allergies Allergy/AdvReac Type Severity Reaction Status Date / Time No Known Allergies Allergy Verified 04/25/21 13:40 Current Medications Generic Name Dose Route Start Last Admin Trade Name Freq PRN Reason Stop Dose Admin Albuterol/Ipratropium 3 ml 07/31/23 08:00 07/31/23 08:01 Ipratropium-Albuterol 3 Ml Neb INHALATION 3 ml Q6H.RESP ANDREA Administration Enoxaparin Sodium 60 mg 07/31/23 05:00 07/31/23 05:12 Enoxaparin 60 Mg/0.6 Ml Syringe SUBCUT 60 mg Q12H ANDREA Administration PFSH Acute 2 PFSH: Medical History Leg injury Pain and swelling of lower leg Family History Father Arthritis Emphysema of lung Mother Low blood pressure Brother Heart problem Social History Smoking and tobacco/nicotine status: former use of tobacco/nicotine Quit status (tobacco/nicotine): has quit using Second hand smoke exposure: No Alcohol intake: never Substance/Drug Use: never Adopted: No Caregiver/support person: No Lives independently: Yes Household members: none Housing: Apartment Marital status: / Number of children: 3 Number of grandchildren: 7 Highest education level completed: 8th Grade service: Yes Current occupational status: retired Vitals/I&O/Wt Last Vital Signs Temp 97.8 F 07/31/23 07:47 Pulse 83 07/31/23 08:02 Resp 16 07/31/23 08:02 BP 142/81 07/31/23 07:47 Pulse Ox 92 07/31/23 08:02 O2 Del Method Heated High Flow 07/31/23 08:00 O2 Flow Rate 35 07/31/23 08:02 FiO2 65 07/31/23 08:02 07/30/23 07/31/23 07/31/23 22:59 06:59 14:59 Intake Total 300 / 300 Balance 300 / 300 Weight last 48 hrs Weight 152 lb 8 oz Weight 150 lb 11.2 oz Physical Exam 2 Narrative: GENERAL: The patient is alert and oriented times two. Not in any acute distress. HEENT: Minimal pallor, icterus or lymphadenopathy.Oral cavity: There are no mucous membrane lesions. NECK: Trachea appears to be central. No masses noted. No JVD or thyromegaly appreciated. RESPIRATORY: Chest is symmetrical. No intercostals muscle retraction or any accessory muscle activation. There is no chest wall tenderness. Breath sounds are heard bilaterally. Scattered fine Rales and coarse crackles bilaterally BREASTS: Deferred. HEART: The heart sounds are normal. No S3 or S4. Short systolic murmur in the left sternal border. No diastolic murmurs. No pericardial rub ABDOMEN: No vessel pulsations or distention. No tenderness. No organomegaly appreciated. Bowel sounds are normally heard. : Deferred. RECTAL: Deferred. LYMPHATIC: No lymphadenopathy noted in the neck. EXTREMITIES: No edema or cyanosis. No clubbing. MUSCULOSKELETAL: No acute joint deformities or swelling SKIN: There are no significant rashes or ecchymosis NEUROPSYCHIATRIC: The patient is alert and oriented x2. No obvious focal motor deficits. Data 07/30/23 22:07/31/23 04:11 Other Labs: Laboratory Last Values WBC 15.59 10^3/uL (3.29-11.43) H 07/30/23: RBC 6.09 10^6/uL (3.85-5.65) H 07/30/23: Hgb 16.10 g/dL (11.27-16.99) 07/30/23: Hct 50.0 % (37-53) 07/30/23: MCV 82.1 fl (82-101) 07/30/23 22: MCH 26.4 pg (27-33) L 07/30/23: MCHC 32.2 g/dL (30-55) 07/30/23: RDW 14.1 % (12.1-15.1) 07/30/23: Plt Count 567 10^3/cmm (157-399) H 07/30/23: MPV 9.2 fL (7.4-10.4) 07/30/23: Neut % (Auto) 47.7 % 07/30/23: Lymph % (Auto) 44.9 % 07/30/23: [place] % (Auto) 4.0 % 07/30/23: Eos % (Auto) 2.1 % 07/30/23: Baso % (Auto) 0.8 % 07/30/23: Neut # (Auto) 7.43 10^3/uL (1.8-7.7) 07/30/23: Lymph # (Auto) 7.0 10^3/uL (0.8-4.8) H 07/30/23: [place] # (Auto) 0.6 10^3/uL (0.2-0.9) 07/30/23: Eos # (Auto) 0.3 10^3/uL (0.0-0.8) 07/30/23: Baso # (Auto) 0.1 10^3/uL (0.0-0.1) 07/30/23: Nucleated RBC % (auto) 0.3 % 07/30/23: Nucleated RBCs # 0.0 /100WBC 07/30/23 22:28 PT 13.90 SECONDS (12.1-14.9) 07/30/23 22:28 INR 1.04 (0.8-1.2) 07/30/23 22:28 Specimen Type Arterial 07/30/23 22:52 Sample Site Radial, right 07/30/23 22:52 ABG pH 7.32 (7.35-7.45) L 07/30/23 22:52 ABG pCO2 41.7 mmHg (35-45) 07/30/23 22:52 ABG pO2 61.5 mmHg (80.0-100.0) L 07/30/23 22:52 ABG HCO3 21.4 mmol/L (22-26) L 07/30/23 22:52 ABG O2 Saturation 88.9 07/30/23 22:52 ABG Base Excess -4.6 mmol/L (-2.0-2.0) L 07/30/23 22:52 [place] Test Pos 07/30/23 22:52 A-a O2 Gradient 4.7 mmHg (5-10) L 07/30/23 22:52 Hematocrit 50.7 % (42-52) 07/30/23 22:52 Hgb O2 Saturation 87.3 % (95-100) L 07/30/23 22:52 Carboxyhemoglobin 1.5 %THgb (0.4-20.1) 07/30/23 22:52 Methemoglobin 0.3 % (0.4-1.5) L 07/30/23 22:52 Total Hemoglobin 16.5 g/dL (14-18) 07/30/23 22:52 Sodium 135.0 mmol/L (131-143) 07/30/23 22:52 Potassium 3.6 mmol/L (3.5-5.0) 07/30/23 22:52 Glucose 382.0 mg/dL (70-115) H 07/30/23 22:52 Ionized Calcium 1.1 mmol/L (1.1-1.4) 07/30/23 22:52 O2 Delivery Device Nrb 07/30/23 22:52 O2 Liters/Min 15.0 % 07/30/23 22:52 Stitch Bonding Machine Drawer In ID [id number] 07/30/23 22:52 Sodium 135 mmol/L (136-145) L 07/31/23 04:11 Potassium 4.0 mmol/L (3.5-5.1) 07/31/23 04:11 Chloride 96 mmol/L (98-107) L 07/31/23 04:11 Carbon Dioxide 21 mmol/L (22-29) L 07/31/23 04:11 Anion Gap 22.0 (5-19) H 07/31/23 04:11 BUN 34 mg/dL (8-23) H 07/31/23 04:11 Creatinine 1.5 mg/dL (0.7-1.2) H 07/31/23 04:11 GFR Calculation Not Reportable 07/31/23 04:11 Glucose 234 mg/dL (65-115) H 07/31/23 04:11 POC Glucose 281 mg/dL (70-110) H 07/31/23 10:41 Calculated Osmolality 295 mOsm/kg (285-295) 07/31/23 04:11 Lactic Acid 6.2 mmol/L (0.5-2.2) H* 07/30/23 22:28 Lactic Acid (Sepsis) 2.2 mmol/L (0.5-2.2) 07/31/23 00:28 Calcium 9.0 mg/dL (8.5-10.5) 07/31/23 04:11 Magnesium 2.7 mg/dL (1.7-2.3) H 07/30/23 22:28 Total Bilirubin 0.5 mg/dL (0.15-1.2) 07/31/23 04:11 AST 46 U/L (0-40) H 07/31/23 04:11 ALT 17 U/L (0-41) 07/31/23 04:11 Alkaline Phosphatase 108 U/L (40-130) 07/31/23 04:11 Troponin T Baseline 38 ng/L (0-15) H 07/30/23 22:28 Troponin T 120 Minute 161.5 ng/L (0-15) H 07/31/23 00:28 Delta Troponin T 123.5 ABS# (0-10) H* 07/31/23 00:28 Troponin T Hi Sens 6Hr 461.3 ng/L (0-15) H 07/31/23 04:11 Troponin T Hi Sens 6Hr Delta 423.3 ng/L (0-12) H* 07/31/23 04:11 NT-Pro-B Natriuret Pep 5401 pg/mL (0-450) H 07/31/23 04:11 Total Protein 7.3 g/dL (6.6-8.7) 07/31/23 04:11 Albumin 3.8 g/dL (3.5-5.2) 07/31/23 04:11 Globulin 3.5 g/dL (1.3-4.6) 07/31/23 04:11 Procalcitonin 0.06 ng/mL (0-0.5) 07/30/23 22:28 Serum Ketones Negative (Negative) 07/31/23 04:11 Adenovirus (PCR) Not detected (NOT DETECT) 07/31/23 05:20 C. pneumoniae DNA (PCR) Not detected (NOT DETECT) 07/31/23 05:20 Coronavirus 229E (PCR) Not detected (NOT DETECT) 07/31/23 05:20 Human Metapneumovir PCR Not detected (NOT DETECT) 07/31/23 05:20 Influenza A (H1) PCR Not detected (NOT DETECT) 07/31/23 05:20 Influ A (H1/09) PCR Not detected (NOT DETECT) 07/31/23 05:20 Influenza A (H3) PCR Not detected (NOT DETECT) 07/31/23 05:20 Influenza Type A (PCR) Not detected (NOT DETECT) 07/31/23 05:20 Influenza Type B (PCR) Not detected (NOT DETECT) 07/31/23 05:20 M. pneumoniae (PCR) Not detected (NOT DETECT) 07/31/23 05:20 Parainfluenza 1 (PCR) Not detected (NOT DETECT) 07/31/23 05:20 Parainfluenza 2 (PCR) Not detected (NOT DETECT) 07/31/23 05:20 Parainfluenza 3 (PCR) Not detected (NOT DETECT) 07/31/23 05:20 Parainfluenza 4 (PCR) Not detected (NOT DETECT) 07/31/23 05:20 RSV Type A (PCR) Not detected (NOT DETECT) 07/31/23 05:20 RSV Type B (PCR) Not detected (NOT DETECT) 07/31/23 05:20 Entero/Rhino (PCR) Not detected (NOT DETECT) 07/31/23 05:20 SARS-CoV-2 (PCR) Not detected (NOT DETECT) 07/31/23 05:20 Micro: Microbiology 07/30/23 22:41 Blood Culture - Preliminary Blood SPECIMEN COLLECTED 07/30/23 22:48 Blood Culture - Preliminary Blood SPECIMEN COLLECTED A&P Assessment and plan (1) NSTEMI (non-ST elevated myocardial infarction): Patient clinical features are suggestive of non-ST elevation myocardial infarction, complicated with congestive heart failure. Patient may be treated with Lovenox, Plavix, aspirin, beta-vivienne and statin drug. (2) Uncontrolled type 2 diabetes mellitus: Aggressive management of the diabetes may be appropriate. Qualifiers: Glycemic state: with hyperglycemia Qualified Code(s): E11.65 - Type 2 diabetes mellitus with hyperglycemia (3) Pneumonia: Patient is on multiple empiric IV antibiotics. Management as per the hospitalist service Qualifiers: Laterality: bilateral Lung location: unspecified part of lung P neumonia type: due to unspecified organism Qualified Code(s): J18.9 - Pneumonia, unspecified organism (4) Altered mental status: Possibly from the hypoxia. Clinically seems to be improving. Qualifiers: Altered mental status type: unspecified Qualified Code(s): R41.82 - Altered mental status, unspecified (5) Benign hypertension: The blood pressure is elevated. May optimize the antihypertensive medications. (6) Dyslipidemia: Currently on the high-dose statin (7) History of recurrent TIAs: A carotid duplex examination would be appropriate to evaluate for any significant carotid artery disease. May continue on the current treatment (8) Chronic kidney disease (CKD): Clinically seems to be stable. Need to continue monitoring the kidney function. Qualifiers: Chronic kidney disease stage: stage 3 (moderate) Chronic kidney disease stage 3 subtype: stage 3a (GFR 45-59) Qualified Code(s): N18.31 - Chronic kidney disease, stage 3a (9) Ischemic cardiomyopathy: The previous LV ejection fraction is not known. Patient may be carefully treated with the diuretics. May try a small dose of ARB to evaluate the clinical response Plan Once the heart failure and pneumonia are appropriately treated with, if the patient and the family are agreeable for further workup, may consider doing a cardiac catheterization. In the meanwhile, we may try to optimize his medical treatment. Thank you for the opportunity to evaluate this patient and make these recommendations I discussed with . Kennedy Higgins, the patient is a concern about his current status and management options. The patient's older son is going to come tomorrow. They are going to have a family discussion tomorrow and then will make a decision regarding further workup. Consult Attestations 2 Medical Necessity Statement: Echocardiogram 07/31/2023 Multiple wall motion abnormalities with a diminished ejection fraction of 37%. Mildly increased left atrial size. Minimally thickened aortic and mitral valves. There is no pericardial effusion. There are no intracardiac masses. Technically somewhat difficult study because of poor ultrasonic window No similar previous studies are available for comparison CT of the abdomen/pelvis 07/30/2023 1. Prominent fluid in the stomach, sma ll bowel and colon may reflect a gastro enterocolitis. 2. Prostate gland somewhat enlarged, p lease correlate clinically. 3. L1 vertebral body compression defor mity without retropulsion of bony fragments. 4. Superior mesenteric artery atherosc lerotic calcifications with 60-70% luminal narrowing. 5. Edema in the central abdominal mese ntery with subcentimeter lymph nodes suggestive of a chronic inflammatory process such as sclerosing mesenteritis. 6. Moderate bilateral pleural effusion s. 7. Bilateral dependent airspace infilt rates. 8. Coronary artery atherosclerotic durga cifications. 9. Diverticulosis without diverticulit is. 10. Right kidney chronic atrophy. 11. Left kidney demonstrates several c ysts, negative follow-up advised. 12. L4 vertebral body sclerotic bony l esion appears nonaggressive, whole body nuclear medicine bone scan could further characterize this. Chest x-ray 07/30/2023 1. Bilateral airspace opacifications s uggestive of alveolar edema and/or bronchopneumonia, please correlate clinically. 2. Trace right pleural effusion. CT of the head 07/30/2023 . Negative for intracranial hemorrhage or mass effect 2. Large amount of diffuse white matte r disease likely reflecting chronic microvascular ischemic changes. 3. Bilateral chronic lacunar infarcts in the basal ganglia and thalami Coding Level of Care Code 34978 Diagnoses NSTEMI (non-ST elevated myocardial infarction) I21.4 Uncontrolled type 2 diabetes mellitus with hyperglycemia E11.65 Glycemic state: with hyperglycemia Pneumonia J18.9 Laterality: bilateral Lung location: unspecified part of lung Pneumonia type: due to unspecified organism Altered mental status R41.82 Altered mental status type: unspecified Benign hypertension I10 Dyslipidemia E78.5 History of recurrent TIAs Z86.73 Stage 3a chronic kidney disease N18.31 Chronic kidney disease stage: stage 3 (moderate) Chronic kidney disease stage 3 subtype: stage 3a (GFR 45-59) Ischemic cardiomyopathy I25.5 Time Spent (min) 70
[2023-07-31] MEDS: FUROsemide 10 mg/mL SDV 2mL 20 MG IVP (09:15)
[2023-07-31] MEDS: clopidogrel 300 mg Tablet PO (09:15)
[2023-07-31] MEDS: pantoprazole DR 40 mg Tablet PO (09:15)
[2023-07-31] MEDS: aspirin 81 mg EC Tablet PO (09:15)
[2023-07-31] MEDS: piperacillin-tazobactam 3.375 GM in sodium chloride 0.9% (plus) 50 ML IV ×2 (09:15→16:03)
--- NOTE | 2023-07-31 09:51 | USCV_ITS ---
Eduard Higgins Age: 77 Gender: M : 1945 Exam Date: 07/31/2023 10:16 Ordering Phys: José Luis Connor MD Technologist: CT Exam Location: [facility] [place] Indication: pain left PROCEDURES: Venous duplex imaging was performed in bilateral lower extremities. Bilaterally, the common femoral, superficial femoral, profunda femoral, popliteal, posterior tibial, greater saphenous veins, and the peroneal trunk were identified and interrogated in the standard fashion. These veins were found to be easily compressible with spontaneous blood flow. No evidence of insufficiency or thrombus noted. FINDINGS: no dvt CONCLUSIONS No evidence of right lower extremity DVT. No evidence of left lower extremity DVT. Santo Gregg MD (Electronically Signed) Final Date: 31 July 2023 13:02 S
--- NOTE | 2023-07-31 10:09 | PC.PHAR ---
PT IS RESIDENT AT [facility]
[2023-07-31 10:17] LABS: Alanine Aminotransferase 17 U/L (0-41); Albumin Level 3.8 g/dL (3.5-5.2); Alkaline Phosphatase 108 U/L (40-130); Aspartate Amino Transferase 46 U/L (0-40); Blood Urea Nitrogen 34 mg/dL (8-23); Carbon Dioxide 21 mmol/L (22-29); Chloride 96 mmol/L (98-107); Creatinine Clr Calc Pharmacy 37.2491; Globulin 3.5 g/dL (1.3-4.6); Glucose 234 mg/dL (65-115); NT Pro B Type Natriuretic Pept 5401 pg/mL (0-450); Osmolality Calculated 295 mOsm/kg (285-295); Sodium 135 mmol/L (136-145); Total Bilirubin 0.5 mg/dL (0.15-1.2); Total Protein 7.3 g/dL (6.6-8.7)
[2023-07-31 10:44] LABS: Glucose Point of Care 281 mg/dL (70-110)
--- NOTE | 2023-07-31 10:47 | PC.NURSE ---
Veinguard was becoming non-adherent. This was removed and replaced with a new Veinguard. This was Date and Time on the device.
[2023-07-31] MEDS: insulin lispro 100 unit/1 mL SUBCUT ×3 (11:17→21:31)
--- NOTE | 2023-07-31 13:11 | PC.SOCIAL ---
IMM Updated Updated pt on IMM. No questions voiced. Provided pt a copy. Initialed, dated, & timed a copy & placed in chart.
[2023-07-31] MEDS: FUROsemide 10 mg/mL SDV 4mL 40 MG IVP (16:02)
[2023-07-31 16:24] LABS: Glucose Point of Care 373 mg/dL (70-110)
[2023-07-31] MEDS: acetaminophen 325 mg Tablet 650 MG PO (17:34)
--- NOTE | 2023-07-31 19:07 | P.PN_ITS ---
Subjective 2 Subjective: Patient was seen this morning, currently on 30 L, alert to person, to place, not to time, he follows all commands, does report shortness of breath but feels significantly better, we discussed his acute respiratory failure, his NSTEMI, his severe respiratory failure, I discussed his overall goals of care, he confirms that he does not want to have aggressive interventions, he becomes quite tearful, but he tells me that he does not want to be resuscitated and does not want him put on mechanical ventilation, we did discuss that if his condition does not start to clinically deteriorate, if his respiratory status worsens what would be his wishes, he tells me that at that point he just would not want to be comfortable, for us to ease his pain and ease his suffering, Vitals/I&O/Wt Last Vital Signs Temp 97.9 F 07/31/23 15:46 Pulse 81 07/31/23 16:30 Resp 20 H 07/31/23 16:30 BP 142/81 07/31/23 15:46 Pulse Ox 98 07/31/23 16:30 O2 Del Method Heated High Flow 07/31/23 16:29 O2 Flow Rate 35 07/31/23 16:30 FiO2 65 07/31/23 16:30 07/31/23 07/31/23 07/31/23 06:59 14:59 22:59 Intake Total 300 / 300 50 / 50 240 / 290 Output Total 1100 / 1100 Balance 300 / 300 50 / 50 -860 / -810 Weight last 48 hrs Weight 69.173 kg Weight 68.356 kg Physical Exam 2 Const: COMMON NORMALS: no acute distress and patient oriented x3 Resp: COMMON NORMALS: normal respiratory effort, No retractions and No use of accessory muscles AUSCULTATION: crackles and wheezes Cardio: COMMON NORMALS: regular rate, regular rhythm, S1 normal heart sound present and S2 normal heart sound present RATE: regular rate RHYTHM: r egular rhythm HEART SOUNDS: S1 normal heart sound present and S2 normal heart sound present GI: COMMON NORMALS: Normal to inspection, nondistended, normoactive bowel sounds present and non-tender Extremity: COMMON NORMALS: no calf tenderness and no pedal edema Neuro: COMMON NORMALS: patient oriented x3 Psych: COMMON NORMALS: mental status grossly normal Urinary Catheter Management: Jeong: Cath Placed During This Visit: yes Reason for Continuing Indwelling Catheter: Accurate Measurement of Urinary Output in Critically Ill Patients Urinary Catheter Date of Insertion: 07/31/23 Urinary Catheter Time of Insertion: 09:45 Data 07/30/23 22:28 07/31/23 04:11 Micro: Microbiology 07/31/23 10:31 Bacterial Antigens - Final Urine,Clean Catch 07/30/23 22:41 Blood Culture - Preliminary Blood SPECIMEN COLLECTED 07/30/23 22:48 Blood Culture - Preliminary Blood SPECIMEN COLLECTED A&P Assessment and plan (1) NSTEMI (non-ST elevated myocardial infarction): (2) Pulmonary edema: Qualifiers: Chronicity: acute Qualified Code(s): J81.0 - Acute pulmonary edema (3) Pneumonia: Qualifiers: Laterality: bilateral Lung location: unspecified part of lung P neumonia type: due to unspecified organism Qualified Code(s): J18.9 - Pneumonia, unspecified organism (4) Acute hypoxemic respiratory failure: (5) Altered mental status: Qualifiers: Altered mental status type: unspecified Qualified Code(s): R41.82 - Altered mental status, unspecified Plan 77-year-old male presenting today with altered mental status, acute respiratory distress, found to have bilateral diffuse infiltrates on chest x-ray which 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 # NSTEMI EKG showing ST segment depressions as noted above. Increasing troponin trend 38--> at 2 hours trended up to 160, trending up to 461 with positive delta's of 123 and 423. No known past history of coronary artery disease. Start Lovenox 1 mg/kg subcutaneously every 12 hours. Aspirin 300 mg given rectally now Start Plavix 300 mg x 1 followed by 75 mg p.o. daily once patient able to tolerate p.o. intake safely. Start atorvastatin 40 mg p.o. daily Echocardiogram ordered. Cardiology consultation KENDALL, creatinine 1.5 Baseline? Baseline kidney function unknown telemetry monitoring # Acute hypoxemic respiratory failure Chest x-ray with diffuse bilateral infiltrates May be off premise service representative of flash pulmonary edema and or pneumonia Lasix 20 mg IV x 1. Give another dose of 40 mg IV Lasix may need further doses depending on blood pressure and urine output response Place Jeong catheter to assess accurate output. Supplemental O2, currently on heated high flow He was vomiting upon initial arrival and had vomited on the BiPAP. Given his poor mentation and vomiting on BiPAP, would avoid placing him on the same again. # Leukocytosis, elevated lactate, acute hypoxemia may point towards developing sepsis. Source may be pneumonia versus gastroenteritis as seen on CT of the abdomen and pelvis. Start empiric antibiotic coverage with piperacillin/tazobactam and vancomycin while undergoing infectious evaluation. Blood and urine cultures taken and pending Check urine bacterial antigen. And respiratory panel. Serial lactate trending down at 2.2 Would not give him any IV fluids given pulmonary edema. # Diabetes mellitus: Insulin sliding scale while in the hospital. Hold OHA's. # Acute kidney injury, creatinine at 1.6 today, unknown past baseline, presumably acute kidney injury given no reported history of CKD in the past. Hold lisinopril. DVT prophylaxis: Currently on full dose Lovenox DNR/DNI Spoke to patient, discussed goals of care spoke to cardiology, spoke to nursing staff Attestations 2 Medical Necessity Statement*: Patient requires hospitalization for acute toxic respiratory failure, NSTEMI, concerns for acute flash pulm edema, pneumonia Diagnoses NSTEMI (non-ST elevated myocardial infarction) I21.4 Pulmonary edema J81.0 Chronicity: acute Pneumonia J18.9 Laterality: bilateral Lung location: unspecified part of lung Pneumonia type: due to unspecified organism Acute hypoxemic respiratory failure J96.01 Altered mental status R41.82 Altered mental status type: unspecified
[2023-07-31 20:54] LABS: Glucose Point of Care 307 mg/dL (70-110)
[2023-07-31] MEDS: atorvastatin 40 mg Tablet PO (21:31)
[2023-08-01] VITALS (15 sets, daily range): BP systolic 88–157; BP diastolic 54–85; PULSE 72–105; RESP 16–26; TEMP 36.3–36.4; O2SAT 89–96
[2023-08-01] MEDS: piperacillin-tazobactam 3.375 GM in sodium chloride 0.9% (plus) 50 ML IV ×4 (00:30→23:39)
[2023-08-01] MEDS: acetaminophen 325 mg Tablet 650 MG PO (00:30)
[2023-08-01] MEDS: ipratropium-albuterol 3 mL Neb INHALATION ×4 (02:21→20:05)
[2023-08-01] MEDS: vancomycin 1,000 MG in sodium chloride 0.9% 250 ML 250 MG IV (02:59)
[2023-08-01 05:29] LABS: Basophils % 0.1 %; Hematocrit 42.9 % (37-53); Lymphocytes % 7.3 %; Mean Corpuscular HGB Conc 33.6 g/dL (30-55); Mean Corpuscular Hemoglobin 26.2 pg (27-33); Mean Corpuscular Volume 78.1 fl (82-101); Mean Platelet Volume 9.3 fL (7.4-10.4); Monocytes % 7.3 %; Neutrophils # 11.36 10^3/uL (1.8-7.7); Nucleated Red Blood Cells % 0 %; Platelet Count 446 10^3/cmm (157-399); Red Blood Count 5.49 10^6/uL (3.85-5.65); Red Cell Distribution Width 14.2 % (12.1-15.1); White Blood Count 13.37 10^3/uL (3.29-11.43)
[2023-08-01] MEDS: enoxaparin 60 mg/0.6 mL Syringe SUBCUT ×2 (05:32→17:19)
[2023-08-01 05:54] LABS: Alanine Aminotransferase 17 U/L (0-41); Albumin Level 4.2 g/dL (3.5-5.2); Alkaline Phosphatase 86 U/L (40-130); Anion Gap 20.6 (5-19); Aspartate Amino Transferase 33 U/L (0-40); Blood Urea Nitrogen 44 mg/dL (8-23); Calcium 9.2 mg/dL (8.5-10.5); Carbon Dioxide 23 mmol/L (22-29); Chloride 100 mmol/L (98-107); Globulin 2.7 g/dL (1.3-4.6); Glucose 183 mg/dL (65-115); Osmolality Calculated 306 mOsm/kg (285-295); Potassium 3.6 mmol/L (3.5-5.1); Sodium 140 mmol/L (136-145); Total Bilirubin 0.6 mg/dL (0.15-1.2); Total Protein 6.9 g/dL (6.6-8.7)
[2023-08-01 05:57] LABS: C Reactive Protein 22.7 mg/L (0.0-4.9); Magnesium 2.6 mg/dL (1.7-2.3); NT Pro B Type Natriuretic Pept 7758 pg/mL (0-450); Procalcitonin 1.68 ng/mL (0-0.5)
[2023-08-01 06:21] LABS: Glucose Point of Care 238 mg/dL (70-110)
--- NOTE | 2023-08-01 07:00 | XRR_ITS ---
PROCEDURE INFORMATION: Exam: XR Chest Exam date and time: 08/01/2023 12:20 PM Age: 77 years old Clinical indication: Shortness of breath; Additional info: SOB TECHNIQUE: Imaging protocol: Radiologic exam of the chest. Views: 1 view. COMPARISON: CR (CHEST, ) 07/30/2023 10:31 PM FINDINGS: Lungs: Bilateral pulmonary edema pattern changes likely superimposed on chronic interstitial changes. There is minimal progression of densities in lower lobes. Pleural spaces: Small pleural effusions. No pneumothorax. Heart/Mediastinum: Stable. Bones/joints: Stable XR/XR chest 1V portable [id number] IMPRESSION: Minimal progression of pulmonary edema/ground-glass densities in lower lungs.
--- NOTE | 2023-08-01 08:16 | P.PN_ITS ---
Subjective 2 Subjective: Patient is complaining of pain between shoulder blades. Patient and family have decided to not proceed with any aggressive measures/interventions. Vitals/I&O/Wt Last Vital Signs Temp 97.5 F L 08/01/23 04:00 Pulse 90 08/01/23 07:48 Resp 22 H 08/01/23 07:48 BP 142/74 08/01/23 04:00 Pulse Ox 89 L 08/01/23 07:48 O2 Del Method Heated High Flow 08/01/23 07:48 O2 Flow Rate 35 08/01/23 07:48 FiO2 65 08/01/23 07:48 07/31/23 08/01/23 08/01/23 22:59 06:59 14:59 Intake Total 285 / 335 281.042 / 616.042 Output Total 1400 / 1400 300 / 1700 Balance -1115 / -1065 -18.958 / -1083.958 Weight last 48 hrs Weight 151 lb 6.4 oz Weight 152 lb 8 oz Weight 150 lb 11.2 oz Physical Exam 2 Narrative: GENERAL: Patient is alert NECK: No jugular vein distension. [] HEENT: No cyanosis. No icterus. No pallor. [] HEART: Regular S1 and S2. No murmur, rub or gallop. [] LUNGS: Diminished air entry. CENTRAL NERVOUS SYSTEM: Grossly nonfocal. [] EXTREMITIES: Lower extremities with 1+ edema bilaterally Urinary Catheter Management: Jeong: Cath Placed During This Visit: yes Reason for Continuing Indwelling Catheter: Accurate Measurement of Urinary Output in Critically Ill Patients Urinary Catheter Date of Insertion: 07/31/23 Urinary Catheter Time of Insertion: 09:45 Data 08/02/23 05:26 08/02/23 05:26 Micro: Microbiology 07/30/23 22:48 Blood Culture - Preliminary Blood NEGATIVE TO DATE 07/30/23 22:41 Blood Culture - Preliminary Blood NEGATIVE TO DATE 07/31/23 10:31 Bacterial Antigens - Final Urine,Clean Catch A&P Assessment and plan (1) NSTEMI (non-ST elevated myocardial infarction): (2) Pulmonary edema: Qualifiers: Chronicity: acute Qualified Code(s): J81.0 - Acute pulmonary edema (3) Pneumonia: Qualifiers: Laterality: bilateral Lung location: unspecified part of lung P neumonia type: due to unspecified organism Qualified Code(s): J18.9 - Pneumonia, unspecified organism (4) Acute hypoxemic respiratory failure: (5) Altered mental status: Qualifiers: Altered mental status type: unspecified Qualified Code(s): R41.82 - Altered mental status, unspecified (6) Acute encephalopathy: (7) Acute respiratory distress syndrome: (8) Acute renal failure: (9) Ischemic cardiomyopathy: (10) Benign hypertension: (11) Physical deconditioning: Plan Patient has an NSTEMI. He has ongoing pain between shoulder blades. Patient and family have decided medical therapy only and no aggressive measures. He is DNR/DNI. Dual antiplatelet therapy with aspirin and plavix. Continue anticoagulation Creatinine has trended up. Can downtitrate diuretics today. Monitor renal function Thank you for involving us with care of this patient. Will continue to follow. Please call with questions. Attestations 2 Medical Necessity Statement*: Care expected to cross 2 midnights. Coding Level of Care Code Acute Code for [facility] Diagnoses NSTEMI (non-ST elevated myocardial infarction) I21.4 Pulmonary edema J81.0 Chronicity: acute Pneumonia J18.9 Laterality: bilateral Lung location: unspecified part of lung Pneumonia type: due to unspecified organism Acute hypoxemic respiratory failure J96.01 Altered mental status R41.82 Altered mental status type: unspecified Acute encephalopathy G93.40 Acute respiratory distress syndrome J80 Acute renal failure N17.9 Ischemic cardiomyopathy I25.5 Benign hypertension I10 Physical deconditioning R53.81
[2023-08-01] MEDS: clopidogrel 75 mg Tablet PO (08:45)
[2023-08-01] MEDS: aspirin 81 mg EC Tablet PO (08:46)
[2023-08-01] MEDS: insulin lispro 100 unit/1 mL SUBCUT ×3 (08:46→17:19)
[2023-08-01] MEDS: isosorbide mononitrate ER 30 mg Tablet PO (08:46)
[2023-08-01] MEDS: losartan 50 mg Tablet 25 MG PO (08:46)
[2023-08-01] MEDS: pantoprazole DR 40 mg Tablet PO (08:46)
[2023-08-01] MEDS: morphine 4 mg/mL SDV 1 mL 2 MG IVP (09:52)
[2023-08-01 11:08] LABS: Glucose Point of Care 242 mg/dL (70-110)
[2023-08-01] MEDS: ondansetron 2 mg/ML SDV 2 mL 4 MG IVP (12:44)
--- NOTE | 2023-08-01 15:14 | PM.PN ---
Subjective Subjective: Patient was examined multiple times throughout the morning, early this morning is alert to person, to place, not to time, he does follow commands, his biggest complaint this morning is persistent shortness of breath and cough, he also tells me that he is quite hungry he wants to try to eat something, he tells me his mouth is dry, denies any abdominal pain, no lightheadedness, no dizziness, I did detailed discussion about his goals of care, he remains a DNR/DNI, I had a discussion with him about his renal failure, and his heart failure, he becomes quite emotional, he tells me that he wants to speak to his sons, he is not ready to make a decision ? I had a detailed discussion with Eduard about his respiratory failure, his NSTEMI, his heart failure his diminished ejection fraction is acute renal failure, he is adamant that he does not want to have aggressive interventions that he is DNR/DNI, but I am not able to get any further decisions from him, he is alert to person, to place not to time, he can follow commands, but currently I do not feel that he has good insight into his medical condition, he does not ask a lot of questions, he has poor eye contact, I do not get a lot of decisions from him, or a lot of indications of his understanding, this could be acute encephalopathy from his respiratory failure, will have to have a detailed discussion with patient's family about his goals of care ? Spoke to cardiology, discussed NSTEMI, his echocardiogram findings, decision of medical management versus acute intervention will be based upon discussion with family, the concern is is that if patient family decides to proceed with acute intervention consideration of coronary angiography, he is a high risk of morbidity or mortality high risk of intubation, he might likely require elective intubation for procedure, there is a high risk of requiring dialysis after procedure given his creatinine ? Patient's 2 sons confirm that patient is at [facility], he has been there for roughly a year, after his strokes, he has had multiple TIAs, ? I had a family meeting with patient, and his 2 sons, I had a discussion with them about his respiratory failure, currently requiring heated high flow likely multifactorial from fluid overload, pneumonia, I am concerned about him developing acute respiratory distress syndrome given his persistently elevated oxygen requirements, will continue to monitor closely continue IV antibiotics, he is developing acute renal failure creatinine is up to 2.1, I would hold off on diuresis for today monitor his respiratory status closely monitor urine output monitor his creatinine, we discussed his NSTEMI, and his echocardiogram findings given his EF of 35%, discussed his deconditioned state, after discussing patient's current hospitalization, discussed interventions available to patient, since meeting jhoan, he is always adamant that he does not want to have aggressive interventions to me, he did not want to be intubated, he did not want to be resuscitated he did not want to have aggressive interventions and he is explicitly told me that if his condition starts or worsens he just wants to be comfortable, he does become quite emotional during our discussions but he is quite clear in his goals of care, I had a discussion about medical management versus coronary angiography for patient's diminished ejection fraction, NSTEMI, after discussing risk and benefits of all options, they voiced understanding, all questions answered Eduard and his sons have declined coronary angiography. Discussed morbidity and mortality associate with NSTEMI, they voiced understanding, all questions answered, they advised me that if his condition does does start to deteriorate, they are okay with just pursuing comfort care measures, but for now they want to continue medical interventions as best as we can. We discussed his renal failure, my concerns for possibly requiring dialysis they are not ready to make a decision in that regard she had, they want to watch his kidney function for now. I had a discussion with him about his respiratory failure and his increased oxygen requirements, currently in the state, there is no way that intermediate would take him on heated high flow, he would likely require placement at a long-term care facility such as [facility] in [place] however we can watch him here in the hospital see if I can improve his respiratory status, hopefully his oxygen requirements can decrease, but my concern is that he might be developing acute respiratory distress syndrome, given his persistently elevated oxygen requirements, his evidence of pneumonia, his pulmonary edema, and his shortness of breath at rest, I had a detailed discussion with patient's son that currently patient's condition is critical, overall his prognosis is poor, for now family wants to continue medical interventions however they do not want to have aggressive interventions, they want to comply with his wishes of being DNR/DNI, and if his condition does start to deteriorate, they are agreeable to comply with his wishes on being comfortable, in proceeding with comfort care, -In terms of his feeding, I was clear with patient and his family that he has a high aspiration risk, however since the morning he has been begging me for something to eat, something to for his dry mouth, given his grave diagnosis he is DNR/DNI, I am willing to put him on clear liquids level 4, so that he can have some satiety with oral feedings, however he still has a high aspiration risk, and morbidity and mortality associated, but I am doing the best I can to help patient medically but on the other hand I am also trying to help his quality of life, and the only thing he is really asked for me this morning he wishes for something to help with his satiety something to help with his dry mouth something to drink so I am to go ahead and put him on dysphagia 4 diet, with clear liquids, and on aspiration precautions, more for his comfort understanding that he has severe respiratory failure, NSTEMI, EF of 35%, pneumonia, renal failure, and that his overall prognosis is poor, I am doing this because this is the only thing that jhoan has asked me for and that he is really desired is something for his satiety something for his dry mouth, something to drink, I am hoping that this helps lifts his spirits a little in this difficult time he is facing Vitals/I&O/Wt Last Vital Signs Temp 97.4 F L 08/01/23 11:26 Pulse 81 08/01/23 14:08 Resp 20 H 08/01/23 14:08 BP 117/71 08/01/23 11:26 Pulse Ox 93 08/01/23 14:08 O2 Del Method Heated High Flow 08/01/23 14:00 O2 Flow Rate 35 08/01/23 14:08 FiO2 70 08/01/23 14:08 08/01/23 08/01/23 08/01/23 06:59 14:59 22:59 Intake Total 281.042 / 616.042 290 / 290 Output Total 300 / 1700 Balance -18.958 / -1083.958 290 / 290 Weight last 48 hrs Weight 68.674 kg Weight 69.173 kg Weight 68.356 kg Physical Exam Const: COMMON NORMALS: no acute distress Resp: COMMON NORMALS: normal respiratory effort, No retractions, No use of accessory muscles and clear to auscultation bilaterally AUSCULTATION: clear to auscultation bilaterally Cardio: COMMON NORMALS: regular rate, regular rhythm, S1 normal heart sound present and S2 normal heart sound present RATE: regular rate RHYTHM: regular rhythm HEART SOUNDS: S1 normal heart sound present and S2 normal heart sound present GI: COMMON NORMALS: Normal to inspection, nondistended, normoactive bowel sounds present and non-tender Extremity: COMMON NORMALS: no pedal edema Psych: COMMON NORMALS: mental status grossly normal Urinary Catheter Management: Jeong: Cath Placed During This Visit: yes Reason for Continuing Indwelling Catheter: Accurate Measurement of Urinary Output in Critically Ill Patients Urinary Catheter Date of Insertion: 07/31/23 Urinary Catheter Time of Insertion: 09:45 Data 08/01/23 04:50 08/01/23 04:50 Micro: Microbiology 07/30/23 22:48 Blood Culture - Preliminary Blood NEGATIVE TO DATE 07/30/23 22:41 Blood Culture - Preliminary Blood NEGATIVE TO DATE 07/31/23 10:31 Bacterial Antigens - Final Urine,Clean Catch A&P Assessment and plan (1) NSTEMI (non-ST elevated myocardial infarction): (2) Pulmonary edema: Qualifiers: Chronicity: acute Qualified Code(s): J81.0 - Acute pulmonary edema (3) Pneumonia: Qualifiers: Laterality: bilateral Lung location: unspecified part of lung Pneumonia type: due to unspecified organism Qualified Code(s): J18.9 - Pneumonia, unspecified organism (4) Acute hypoxemic respiratory failure: (5) Altered mental status: Qualifiers: Altered mental status type: unspecified Qualified Code(s): R41.82 - Altered mental status, unspecified (6) Acute encephalopathy: (7) Acute respiratory distress syndrome: (8) Acute renal failure: (9) Ischemic cardiomyopathy: (10) Benign hypertension: (11) Physical deconditioning: Plan 77-year-old male presenting today with altered mental status, acute respiratory distress, found to have bilateral diffuse infiltrates on chest x-ray which 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 # Acute encephalopathy ? Likely secondary to pneumonia, acute respiratory failure, ischemic cardiomyopathy ? Monitor mentation closely # NSTEMI ? Concerns for type I NSTEMI, ischemic cardiomyopathy EKG showing ST segment depressions as noted above. Increasing troponin trend 38--> at 2 hours trended up to 160, trending up to 461 with positive delta's of 123 and 423. No known past history of coronary artery disease. Start Lovenox 1 mg/kg subcutaneously every 12 hours. Aspirin 81mg Start 75 mg p.o. daily once patient able to tolerate p.o. intake safely. Start atorvastatin 40 mg p.o. daily Echocardiogram CONCLUSIONS Multiple wall motion abnormalities with a diminished ejection fraction of 37%. Mildly increased left atrial size. Minimally thickened aortic and mitral valves. There is no pericardial effusion. There are no intracardiac masses. Technically somewhat difficult study because of poor ultrasonic window No similar previous studies are available for comparison Cardiology consultation ? After discussion with patient and family, proceed with medical interventions, declined acute intervention, if his condition starts to deteriorate, proceed with comfort care KENDALL, creatinine 2.1, ? Likely multifactorial from NSTEMI, respiratory failure, pneumonia, sepsis telemetry monitoring # Acute hypoxemic respiratory failure, secondary to pulmonary edema, pneumonia Chest x-ray with diffuse bilateral infiltrates Likely multifactorial from pneumonia, pulmonary edema Lasix 20 mg IV x 1. Give another dose of 40 mg IV Lasix may need further doses depending on blood pressure and urine output response Place Jeong catheter to assess accurate output. Supplemental O2, currently on heated high flow He was vomiting upon initial arrival and had vomited on the BiPAP. Given his poor mentation and vomiting on BiPAP, would avoid placing him on the same again. ? High aspiration risk, patient would like liquids for satiety, for dry mouth, for his quality of life, patient and family understand the morbidity and mortality associate with aspiration pneumonia aspiration pneumonitis, patient and family have excepted these risks, they voiced understanding, all questions answered given his poor prognosis I am going to allow him to have clear liquids for now with aspiration precautions, dysphagia level 4 # Pneumonia Leukocytosis, elevated lactate, acute hypoxemia may point towards developing sepsis. Source is likely pneumonia Continue with vancomycin, Zosyn Blood and urine cultures taken and pending # Diabetes mellitus: Insulin sliding scale while in the hospital. Hold OHA's. DVT prophylaxis: Currently on full dose Lovenox DNR/DNI Spoke to patient, discussed goals of care spoke to cardiology, spoke to nursing staff, spoke to patient's family, family meeting, goals of care discussion Attestations Medical Necessity Statement*: Patient requires hospitalization for acute respiratory failure, NSTEMI, acute encephalopathy, pulm edema, pneumonia, Diagnoses NSTEMI (non-ST elevated myocardial infarction) I21.4 Pulmonary edema J81.0 Chronicity: acute Pneumonia J18.9 Laterality: bilateral Lung location: unspecified part of lung Pneumonia type: due to unspecified organism Acute hypoxemic respiratory failure J96.01 Altered mental status R41.82 Altered mental status type: unspecified Acute encephalopathy G93.40 Acute respiratory distress syndrome J80 Acute renal failure N17.9 Ischemic cardiomyopathy I25.5 Benign hypertension I10 Physical deconditioning R53.81
[2023-08-01 16:29] LABS: Glucose Point of Care 192 mg/dL (70-110)
[2023-08-01] MEDS: atorvastatin 40 mg Tablet PO (20:28)
[2023-08-01 20:55] LABS: Glucose Point of Care 133 mg/dL (70-110)
[2023-08-02] VITALS (24 sets, daily range): BP systolic 120–147; BP diastolic 66–88; PULSE 80–136; RESP 16–30; TEMP 36.4–36.8; O2SAT 82–95
[2023-08-02] MEDS: vancomycin 1,000 MG in sodium chloride 0.9% 250 ML 250 MG IV (01:33)
[2023-08-02] MEDS: ipratropium-albuterol 3 mL Neb INHALATION ×4 (03:13→20:02)
[2023-08-02] MEDS: morphine 4 mg/mL SDV 1 mL 2 MG IVP ×3 (03:32→14:51)
[2023-08-02] MEDS: ondansetron 2 mg/ML SDV 2 mL 4 MG IVP ×3 (03:32→17:09)
--- NOTE | 2023-08-02 03:41 | PC.RESP ---
Nurse notified therapist about patient desating and staying in the lower 80s. Therapist checked on patient and turned up the flow and fi02 on the heated high flow, and no changes in oxygen. After moving patient and trying to get him comfortable sats dropped and stayed in the 70s. Dr was notified by nurse and ordered bipap. Patient vitals are now 92% and heart rate 119.
[2023-08-02] MEDS: FUROsemide 10 mg/mL SDV 2mL 20 MG (03:47)
[2023-08-02] MEDS: enoxaparin 60 mg/0.6 mL Syringe SUBCUT ×2 (05:01→17:08)
[2023-08-02 05:53] LABS: Basophils % 0.3 %; Eosinophils % 0.1 %; Hematocrit 40.7 % (37-53); Lymphocytes # 0.7 10^3/uL (0.8-4.8); Lymphocytes % 5.4 %; Mean Corpuscular HGB Conc 32.4 g/dL (30-55); Mean Corpuscular Hemoglobin 26.3 pg (27-33); Mean Corpuscular Volume 81.1 fl (82-101); Mean Platelet Volume 9.4 fL (7.4-10.4); Monocytes # 0.8 10^3/uL (0.2-0.9); Monocytes % 5.7 %; Neutrophils # 11.97 10^3/uL (1.8-7.7); Neutrophils % 87.9 %; Nucleated Red Blood Cells % 0 %; Platelet Count 384 10^3/cmm (157-399); Red Blood Count 5.02 10^6/uL (3.85-5.65); Red Cell Distribution Width 14.4 % (12.1-15.1)
[2023-08-02 06:17] LABS: C Reactive Protein 26.7 mg/L (0.0-4.9); Magnesium 2.8 mg/dL (1.7-2.3)
[2023-08-02 06:21] LABS: NT Pro B Type Natriuretic Pept 10950 pg/mL (0-450); Procalcitonin 1.29 ng/mL (0-0.5)
[2023-08-02 06:32] LABS: Anion Gap 20.7 (5-19); Blood Urea Nitrogen 55 mg/dL (8-23); Calcium 8.4 mg/dL (8.5-10.5); Carbon Dioxide 23 mmol/L (22-29); Chloride 96 mmol/L (98-107); Creatinine Clr Calc Pharmacy 24.2194; Glucose 254 mg/dL (65-115); Osmolality Calculated 306 mOsm/kg (285-295); Potassium 3.7 mmol/L (3.5-5.1); Sodium 136 mmol/L (136-145)
[2023-08-02] MEDS: losartan 50 mg Tablet 25 MG PO (08:29)
[2023-08-02] MEDS: aspirin 81 mg EC Tablet PO (08:29)
[2023-08-02] MEDS: clopidogrel 75 mg Tablet PO (08:29)
[2023-08-02] MEDS: isosorbide mononitrate ER 30 mg Tablet PO (08:29)
[2023-08-02] MEDS: pantoprazole DR 40 mg Tablet PO (08:29)
[2023-08-02] MEDS: piperacillin-tazobactam 3.375 GM in sodium chloride 0.9% (plus) 50 ML IV ×3 (08:30→23:24)
--- NOTE | 2023-08-02 09:10 | P.PN_ITS ---
Subjective 2 Subjective: In respiratory distress. Does not want BiPAP Vitals/I&O/Wt Last Vital Signs Temp 97.5 F L 08/02/23 08:00 Pulse 90 08/02/23 08:27 Resp 16 08/02/23 08:33 BP 129/75 08/02/23 08:00 Pulse Ox 92 08/02/23 08:27 O2 Del Method Heated High Flow 08/02/23 08:27 O2 Flow Rate 40 08/02/23 08:27 FiO2 80 08/02/23 08:27 08/01/23 08/02/23 08/02/23 22:59 06:59 14:59 Intake Total 290 / 580 300.000 / 880.000 Output Total 500 / 500 300 / 800 Balance -210 / 80 0 / 80.000 Weight last 48 hrs Weight 151 lb 6.4 oz Physical Exam 2 Narrative: GENERAL: Patient is alert NECK: No jugular vein distension. [] HEENT: No cyanosis. No icterus. No pallor. [] HEART: Regular S1 and S2. No murmur, rub or gallop. [] LUNGS: Diminished air entry. CENTRAL NERVOUS SYSTEM: Grossly nonfocal. [] EXTREMITIES: Lower extremities with 1+ edema bilaterally Urinary Catheter Management: Jeong: Cath Placed During This Visit: yes Reason for Continuing Indwelling Catheter: Hospice/Comfort/Palliative Care Urinary Catheter Date of Insertion: 07/31/23 Urinary Catheter Time of Insertion: 09:45 Data 08/02/23 05:26 08/02/23 05:26 A&P Assessment and plan (1) NSTEMI (non-ST elevated myocardial infarction): (2) Pulmonary edema: Qualifiers: Chronicity: acute Qualified Code(s): J81.0 - Acute pulmonary edema (3) Pneumonia: Qualifiers: Laterality: bilateral Lung location: unspecified part of lung P neumonia type: due to unspecified organism Qualified Code(s): J18.9 - Pneumonia, unspecified organism (4) Acute hypoxemic respiratory failure: (5) Altered mental status: Qualifiers: Altered mental status type: unspecified Qualified Code(s): R41.82 - Altered mental status, unspecified (6) Acute encephalopathy: (7) Acute respiratory distress syndrome: (8) Acute renal failure: (9) Ischemic cardiomyopathy: (10) Benign hypertension: (11) Physical deconditioning: Plan Patient and family have decided to only continue medical therapy. His respiratory status is worsening. Discussions regarding comfort care ongoing and possibly will be comfort care today per primary team. We will sign off. Please call with questions. Attestations 2 Medical Necessity Statement*: Care expected to cross 2 midnights. Coding Level of Care Code Acute Code for [facility] Diagnoses NSTEMI (non-ST elevated myocardial infarction) I21.4 Pulmonary edema J81.0 Chronicity: acute Pneumonia J18.9 Laterality: bilateral Lung location: unspecified part of lung Pneumonia type: due to unspecified organism Acute hypoxemic respiratory failure J96.01 Altered mental status R41.82 Altered mental status type: unspecified Acute encephalopathy G93.40 Acute respiratory distress syndrome J80 Acute renal failure N17.9 Ischemic cardiomyopathy I25.5 Benign hypertension I10 Physical deconditioning R53.81
[2023-08-02] MEDS: LORazepam 2 mg/mL INJ 10 mL MDV 0.5 MG IVP (09:37)
[2023-08-02] MEDS: FUROsemide 10 mg/mL SDV 4mL 40 MG IVP (09:39)
[2023-08-02 11:28] LABS: Glucose Point of Care 250 mg/dL (70-110)
--- NOTE | 2023-08-02 11:44 | P.PN_ITS ---
Subjective 2 Subjective: Patient was seen this morning ? Son is at bedside Is currently in moderate respiratory distress, nasal. Intercostal retractions on 40 L, short of breath with a few words, O2 sats dropped into the low 80s, they do recover, he was on BiPAP during the night due to acute respiratory distress ?I had a detailed discussion with patient and his son about patient's current respiratory distress, likely secondary to fluid overload, NSTEMI, pneumonia, with developing flash pulmonary edema, elevated BNP, renal function is worsening creatinine is 2.3, ? Discussed overall goals of care, patient remains a DNR/DNI ? Discussed goals of care if his clinical condition continues to deteriorate, options are available, after discussing the risk and benefits of all options, they voiced understanding, all question answered barely tells me that if he starts to worsen he just wants to be kept comfortable, for us to ease his pain and ease his suffering allow him to pass with comfortably, he tells me that he is ready ? Eduard does not want to be put back on BiPAP he wants to continue heated high flow ? Eduard wants a Dr. Mueller, will allow him to have this ? We did discuss that in the meantime if he does have episodes of shortness of breath, we can use morphine and Ativan to help with air hunger, to help him with episodes of respiratory distress, he voiced understanding, all questions answered ? After discussing the risks and benefits of all options, he voiced understanding, all Qs answered for now he wants to continue medical interventions however if his condition deteriorates, he wants to be full comfort care, he voiced understanding, all questions answered, discussion was made in part of the patient's son called by bedside ? Currently status is critical, prognosis poor Vitals/I&O/Wt Last Vital Signs Temp 97.5 F L 08/02/23 11:42 Pulse 97 08/02/23 11:42 Resp 16 08/02/23 11:42 BP 147/88 08/02/23 11:42 Pulse Ox 90 08/02/23 11:42 O2 Del Method High Flow Nasal Cannula 08/02/23 11:42 O2 Flow Rate 40 08/02/23 08:27 FiO2 80 08/02/23 08:27 08/01/23 08/02/23 08/02/23 22:59 06:59 14:59 Intake Total 290 / 580 300.000 / 880.000 240 / 240 Output Total 500 / 500 300 / 800 Balance -210 / 80 0 / 80.000 240 / 240 Weight last 48 hrs Weight 68.674 kg Physical Exam 2 Const: COMMON NORMALS: no acute distress and patient oriented x3 GENERAL APPEARANCE: ill appearing and frail appearing ORIENTATION/CONSCIOUSNESS: Yes awake, Yes oriented to person and Yes oriented to place Resp: EFFORT & INSPECTION: Yes abnormal respiratory pattern, Yes tachypneic, Yes respiratory distress and Yes retractions AUSCULTATION: crackles and wheezes Cardio: COMMON NORMALS: regular rhythm, S1 normal heart sound present and S2 normal heart sound present RATE: tachycardic RHYTHM: regular rhythm H EART SOUNDS: S1 normal heart sound present and S2 normal heart sound present GI: COMMON NORMALS: Normal to inspection, nondistended, normoactive bowel sounds present, non-tender and no masses Neuro: COMMON NORMALS: patient oriented x3 SENSORIUM/ORIENTATION: Yes oriented to person and Yes oriented to place Psych: COMMON NORMALS: mental status grossly normal Urinary Catheter Management: Jeong: Cath Placed During This Visit: yes Reason for Continuing Indwelling Catheter: Hospice/Comfort/Palliative Care Urinary Catheter Date of Insertion: 07/31/23 Urinary Catheter Time of Insertion: 09:45 Data 08/02/23 05:26 08/02/23 05:26 A&P Assessment and plan (1) NSTEMI (non-ST elevated myocardial infarction): (2) Pulmonary edema: Qualifiers: Chronicity: acute Qualified Code(s): J81.0 - Acute pulmonary edema (3) Pneumonia: Qualifiers: Laterality: bilateral Lung location: unspecified part of lung P neumonia type: due to unspecified organism Qualified Code(s): J18.9 - Pneumonia, unspecified organism (4) Acute hypoxemic respiratory failure: (5) Altered mental status: Qualifiers: Altered mental status type: unspecified Qualified Code(s): R41.82 - Altered mental status, unspecified (6) Acute encephalopathy: (7) Acute respiratory distress syndrome: (8) Acute renal failure: (9) Ischemic cardiomyopathy: (10) Benign hypertension: (11) Physical deconditioning: (12) Goals of care, counseling/discussion: Plan 77-year-old male presenting today with altered mental status, acute respiratory distress, found to have bilateral diffuse infiltrates on chest x-ray which 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 # Acute encephalopathy ? Likely secondary to pneumonia, acute respiratory failure, ischemic cardiomyopathy ? Monitor mentation closely # NSTEMI ? Concerns for type I NSTEMI, ischemic cardiomyopathy EKG showing ST segment depressions as noted above. Increasing troponin trend 38--> at 2 hours trended up to 160, trending up to 461 with positive delta's of 123 and 423. No known past history of coronary artery disease. Start Lovenox 1 mg/kg subcutaneously every 12 hours. Aspirin 81mg Start 75 mg p.o. daily once patient able to tolerate p.o. intake safely. Start atorvastatin 40 mg p.o. daily Echocardiogram CONCLUSIONS Multiple wall motion abnormalities with a diminished ejection fraction of 37%. Mildly increased left atrial size. Minimally thickened aortic and mitral valves. There is no pericardial effusion. There are no intracardiac masses. Technically somewhat difficult study because of poor ultrasonic window No similar previous studies are available for comparison Cardiology consultation ? After discussion with patient and family, proceed with medical interventions, declined acute intervention, if his condition starts to deteriorate, proceed with comfort care Acute renal failure, creatinine 2.3 ? Likely multifactorial from NSTEMI, respiratory failure, pneumonia, sepsis telemetry monitoring # Acute hypoxemic respiratory failure, secondary to pulmonary edema, pneumonia, acute renal failure Chest x-ray with diffuse bilateral infiltrates Likely multifactorial from pneumonia, pulmonary edema Lasix 20 mg IV x 1 early this morning, will give another 40 mg IV push Lasix Give another dose of 40 mg IV Lasix may need further doses depending on blood pressure and urine output response Place Jeong catheter to assess accurate output. Supplemental O2, currently on heated high flow Currently on heated high flow, declines BiPAP ? High aspiration risk, patient would like liquids for satiety, for dry mouth, for his quality of life, patient and family understand the morbidity and mortality associate with aspiration pneumonia aspiration pneumonitis, patient and family have excepted these risks, they voiced understanding, all questions answered given his poor prognosis I am going to allow him to have clear liquids for now with aspiration precautions, dysphagia level 4 # Pneumonia Leukocytosis, elevated lactate, acute hypoxemia may point towards developing sepsis. Source is likely pneumonia Continue with vancomycin, Zosyn Blood and urine cultures taken and pending # Diabetes mellitus: Insulin sliding scale while in the hospital. Hold OHA's. DVT prophylaxis: Currently on full dose Lovenox DNR/DNI Patient was seen this morning ? Son is at bedside Is currently in moderate respiratory distress, nasal. Intercostal retractions on 40 L, short of breath with a few words, O2 sats dropped into the low 80s, they do recover, he was on BiPAP during the night due to acute respiratory distress ?I had a detailed discussion with patient and his son about patient's current respiratory distress, likely secondary to fluid overload, NSTEMI, pneumonia, with developing flash pulmonary edema, elevated BNP, renal function is worsening creatinine is 2.3, ? Discussed overall goals of care, patient remains a DNR/DNI ? Discussed goals of care if his clinical condition continues to deteriorate, options are available, after discussing the risk and benefits of all options, they voiced understanding, all question answered barely tells me that if he starts to worsen he just wants to be kept comfortable, for us to ease his pain and ease his suffering allow him to pass with comfortably, he tells me that he is ready ? Eduard does not want to be put back on BiPAP he wants to continue heated high flow ? Eduard wants a Dr. Mueller, will allow him to have this ? We did discuss that in the meantime if he does have episodes of shortness of breath, we can use morphine and Ativan to help with air hunger, to help him with episodes of respiratory distress, he voiced understanding, all questions answered ? After discussing the risks and benefits of all options, he voiced understanding, all Qs answered for now he wants to continue medical interventions however if his condition deteriorates, he wants to be full comfort care, he voiced understanding, all questions answered, discussion was made in part of the patient's son called by bedside ? Currently status is critical, prognosis poor -Spoke to son outside the room, son tells me that his other brother has already said his goodbyes, I advised patient's son that I think bili is likely going to pass away, that if any family members want to come by and give their final goodbyes they should come, for now some wants us to continue medical interventions as best as we can however if Ceferinos condition starts to deteriorate, agreeable to full comfort care however he does not want lisbeth to suffer, we discussed increasing the dose of morphine, Attestations 2 Medical Necessity Statement*: Patient requires hospitalization for acute hypoxic respiratory failure, NSTEMI, acute renal failure Diagnoses NSTEMI (non-ST elevated myocardial infarction) I21.4 Pulmonary edema J81.0 Chronicity: acute Pneumonia J18.9 Laterality: bilateral Lung location: unspecified part of lung Pneumonia type: due to unspecified organism Acute hypoxemic respiratory failure J96.01 Altered mental status R41.82 Altered mental status type: unspecified Acute encephalopathy G93.40 Acute respiratory distress syndrome J80 Acute renal failure N17.9 Ischemic cardiomyopathy I25.5 Benign hypertension I10 Physical deconditioning R53.81 Goals of care, counseling/discussion Z71.89
[2023-08-02 16:19] LABS: Glucose Point of Care 254 mg/dL (70-110)
[2023-08-02] MEDS: insulin lispro 100 unit/1 mL SUBCUT ×2 (17:08→21:00)
--- NOTE | 2023-08-02 17:44 | PC.NURSE ---
Saad Higgins (patients son) phone number:
[2023-08-02 20:00] LABS: Glucose Point of Care 209 mg/dL (70-110)
[2023-08-03] VITALS (20 sets, daily range): BP systolic 133–166; BP diastolic 75–79; PULSE 76–92; RESP 16–24; TEMP 36.4–36.6; O2SAT 89–98
[2023-08-03] MEDS: morphine 4 mg/mL SDV 1 mL 2 MG IVP ×3 (00:54→15:33)
--- NOTE | 2023-08-03 01:29 | PC.NURSE ---
At the begining of the shift, the pt was noted to be saturating at 93-95% with HHF. At approximately 0100 the pt's cont. pulse ox alarmed and his sats were at 82-84%. The pt was repositioned and given IV morphine. The o/s physician was notified and gave an order update to give 0.5 mg Ativan IVP Q4 PRN air hunger. Order updated in chart, awaiting pharmacy to update. Pt told daytime physician he would continue medical interventions until he began to deteriorate, then he would like to be just comfort care. The o/c physician was informed of this as well.
[2023-08-03] MEDS: LORazepam 2 mg/mL INJ 10 mL MDV 0.5 MG IVP ×2 (02:08→12:35)
--- NOTE | 2023-08-03 02:30 | PC.NURSE ---
Pt asked this nurse to call his son Saad to be with him. The son was called and he reported he is unfortunately back in [place]. The pt also asked to call his sister to be her with him. Call made to her and no answer at this time. Will attempt to call again at a later time.
[2023-08-03] MEDS: ipratropium-albuterol 3 mL Neb INHALATION ×3 (02:34→13:55)
[2023-08-03 03:49] LABS: Basophils % 0.4 %; Eosinophils % 0.3 %; Hematocrit 41.3 % (37-53); Lymphocytes # 0.9 10^3/uL (0.8-4.8); Lymphocytes % 9.5 %; Mean Corpuscular Hemoglobin 25.7 pg (27-33); Mean Corpuscular Volume 80.5 fl (82-101); Mean Platelet Volume 9.4 fL (7.4-10.4); Monocytes # 0.8 10^3/uL (0.2-0.9); Monocytes % 8.1 %; Neutrophils # 7.68 10^3/uL (1.8-7.7); Neutrophils % 81.4 %; Nucleated Red Blood Cells % 0 %; Platelet Count 351 10^3/cmm (157-399); Red Blood Count 5.13 10^6/uL (3.85-5.65); Red Cell Distribution Width 14.3 % (12.1-15.1); White Blood Count 9.45 10^3/uL (3.29-11.43)
[2023-08-03 04:20] LABS: C Reactive Protein 19.7 mg/L (0.0-4.9); Magnesium 3.1 mg/dL (1.7-2.3)
[2023-08-03 04:28] LABS: NT Pro B Type Natriuretic Pept 15310 pg/mL (0-450); Procalcitonin 1.11 ng/mL (0-0.5)
[2023-08-03 04:52] LABS: Anion Gap 21.5 (5-19); Blood Urea Nitrogen 59 mg/dL (8-23); Calcium 8.9 mg/dL (8.5-10.5); Carbon Dioxide 22 mmol/L (22-29); Chloride 99 mmol/L (98-107); Glucose 157 mg/dL (65-115); Osmolality Calculated 308 mOsm/kg (285-295); Potassium 3.5 mmol/L (3.5-5.1); Sodium 139 mmol/L (136-145)
[2023-08-03 06:08] LABS: Glucose Point of Care 203 mg/dL (70-110)
[2023-08-03] MEDS: lidocaine 1% 5 ML in potassium chloride premix 100 ML 52.5 ML IV (08:37)
[2023-08-03] MEDS: losartan 50 mg Tablet 25 MG PO (08:38)
[2023-08-03] MEDS: FUROsemide 10 mg/mL SDV 4mL 40 MG IVP (08:38)
[2023-08-03] MEDS: clopidogrel 75 mg Tablet PO (08:38)
[2023-08-03] MEDS: isosorbide mononitrate ER 30 mg Tablet PO (08:38)
[2023-08-03] MEDS: pantoprazole DR 40 mg Tablet PO (08:39)
[2023-08-03] MEDS: aspirin 81 mg EC Tablet PO (08:39)
[2023-08-03] MEDS: piperacillin-tazobactam 3.375 GM in sodium chloride 0.9% (plus) 50 ML IV (12:00)
--- NOTE | 2023-08-03 12:14 | PC.SOCIAL ---
IMM Update pg 2 of IMM updated and reviewed. Copy left @ bedside and copy dated, initialed and placed in chart.
--- NOTE | 2023-08-03 16:42 | P.PN_ITS ---
Subjective 2 Subjective: Patient had episodes of respiratory distress during the night, this morning, he is alert to person, to place, not to time, at times is encephalopathic, cannot follow commands, at other times, he is more alert awake, currently on 40 L 75% FiO2, normotensive, afebrile, currently in moderate respiratory distress tachypnea, tachycardia, nasal flaring, intercostal retractions according to nursing staff Eduard dc has voiced to nursing staff that he wants everything to be stopped, when I asked Eduard if I should stop everything, he tells me that he is tired, but that is all I really get from him, I was able to speak to patient's son Kennedy over the phone and then in person, we discussed goals of care, discussed options available including continue medical admission versus proceeding with comfort care, versus long-term care facility placement, after discussing risk benefits of all options, they voiced understanding, all Qs answered, wants to proceed with full comfort care, however they want to wait until all family members are at bedside, will continue interventions for now, awake, alert, however rolanda, overall does not want his father to suffer, wants to emphasize prosthesis pain, ease his suffering, patient was reexamined in the afternoon, he is resting more comfortably, has received morphine, still tachycardiac tachypnea has improved, mild respiratory distress mild intercostal retractions nasal flaring, he is asked the nursing staff for something to eat, Vitals/I&O/Wt Last Vital Signs Temp 97.5 F L 08/03/23 07:32 Pulse 86 08/03/23 13:59 Resp 18 08/03/23 15:33 BP 150/77 08/03/23 08:38 Pulse Ox 94 08/03/23 13:55 O2 Del Method Heated High Flow 08/03/23 13:55 O2 Flow Rate 40 08/03/23 13:55 FiO2 75 08/03/23 13:55 08/03/23 08/03/23 08/03/23 06:59 14:59 22:59 Intake Total 110 / 1410 225 / 225 Output Total 300 / 1600 Balance -190 / -190 225 / 225 Weight last 48 hrs Weight 68.447 kg Physical Exam 2 Const: COMMON NORMALS: no acute distress ORIENTATION/CONSCIOUSNESS: Yes awake and Yes oriented to person; not oriented to place and not oriented to time Resp: EFFORT & INSPECTION: Yes abnormal respiratory pattern, Yes tachypneic and Yes respiratory distress AUSCULTATION: crackles Cardio: COMMON NORMALS: regular rhythm, S1 normal heart sound present and S2 normal heart sound present RATE: tachycardic RHYTHM: regular rhythm H EART SOUNDS: S1 normal heart sound present and S2 normal heart sound present GI: COMMON NORMALS: Normal to inspection, nondistended, normoactive bowel sounds present and non-tender Extremity: COMMON NORMALS: no pedal edema Neuro: SENSORIUM/ORIENTATION: Yes oriented to person, No oriented to place and No oriented to time Psych: COMMON NORMALS: mental status grossly normal Urinary Catheter Management: Jeong: Cath Placed During This Visit: yes Reason for Continuing Indwelling Catheter: Hospice/Comfort/Palliative Care Urinary Catheter Date of Insertion: 07/31/23 Urinary Catheter Time of Insertion: 09:45 Data 08/03/23 03:29 08/03/23 03:29 A&P Assessment and plan (1) NSTEMI (non-ST elevated myocardial infarction): (2) Pulmonary edema: Qualifiers: Chronicity: acute Qualified Code(s): J81.0 - Acute pulmonary edema (3) Pneumonia: Qualifiers: Laterality: bilateral Lung location: unspecified part of lung P neumonia type: due to unspecified organism Qualified Code(s): J18.9 - Pneumonia, unspecified organism (4) Acute hypoxemic respiratory failure: (5) Altered mental status: Qualifiers: Altered mental status type: unspecified Qualified Code(s): R41.82 - Altered mental status, unspecified (6) Acute encephalopathy: (7) Acute respiratory distress syndrome: (8) Acute renal failure: (9) Ischemic cardiomyopathy: (10) Benign hypertension: (11) Physical deconditioning: (12) Goals of care, counseling/discussion: Plan Goals of care discussion, for now continue medical interventions, above I will emphasize billys, comfort, easing his pain easing his suffering, once family members arrive, son from [place] arriving, will proceed with full comfort care 77-year-old male presenting today with altered mental status, acute respiratory distress, found to have bilateral diffuse infiltrates on chest x-ray which may be 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 # Acute encephalopathy ? Likely secondary to pneumonia, acute respiratory failure, ischemic cardiomyopathy ? Monitor mentation closely # NSTEMI ? Concerns for type I NSTEMI, ischemic cardiomyopathy EKG showing ST segment depressions as noted above. Increasing troponin trend 38--> at 2 hours trended up to 160, trending up to 461 with positive delta's of 123 and 423. No known past history of coronary artery disease. Start Lovenox 1 mg/kg subcutaneously every 12 hours. Aspirin 81mg Start 75 mg p.o. daily once patient able to tolerate p.o. intake safely. Start atorvastatin 40 mg p.o. daily Echocardiogram CONCLUSIONS Multiple wall motion abnormalities with a diminished ejection fraction of 37%. Mildly increased left atrial size. Minimally thickened aortic and mitral valves. There is no pericardial effusion. There are no intracardiac masses. Technically somewhat difficult study because of poor ultrasonic window No similar previous studies are available for comparison Cardiology consultation ? After discussion with patient and family, proceed with medical interventions, declined acute intervention, if his condition starts to deteriorate, proceed with comfort care Acute renal failure, creatinine 2.1 ? Likely multifactorial from NSTEMI, respiratory failure, pneumonia, sepsis telemetry monitoring # Acute hypoxemic respiratory failure, secondary to pulmonary edema, pneumonia, acute renal failure Chest x-ray with diffuse bilateral infiltrates Likely multifactorial from pneumonia, pulmonary edema Lasix 20 mg IV x 1 early this morning, will give another 40 mg IV push Lasix Give another dose of 40 mg IV Lasix may need further doses depending on blood pressure and urine output response Place Jeong catheter to assess accurate output. Supplemental O2, currently on heated high flow Currently on heated high flow, declines BiPAP ? High aspiration risk, patient would like liquids for satiety, for dry mouth, for his quality of life, patient and family understand the morbidity and mortality associate with aspiration pneumonia aspiration pneumonitis, patient and family have excepted these risks, they voiced understanding, all questions answered given his poor prognosis I am going to allow him to have clear liquids for now with aspiration precautions, dysphagia level 4 # Pneumonia Leukocytosis, elevated lactate, acute hypoxemia may point towards developing sepsis. Source is likely pneumonia Continue with vancomycin, Zosyn Blood and urine cultures taken and pending # Diabetes mellitus: Insulin sliding scale while in the hospital. Hold OHA's. DVT prophylaxis: Currently on full dose Lovenox DNR/DNI Attestations 2 Medical Necessity Statement*: Patient requires hospitalization for acute hypoxic respiratory failure, acute respiratory distress syndrome, pneumonia, CHF, NSTEMI, continue medical intervention, for now once family numbers arrived, will proceed to full comfort care Diagnoses NSTEMI (non-ST elevated myocardial infarction) I21.4 Pulmonary edema J81.0 Chronicity: acute Pneumonia J18.9 Laterality: bilateral Lung location: unspecified part of lung Pneumonia type: due to unspecified organism Acute hypoxemic respiratory failure J96.01 Altered mental status R41.82 Altered mental status type: unspecified Acute encephalopathy G93.40 Acute respiratory distress syndrome J80 Acute renal failure N17.9 Ischemic cardiomyopathy I25.5 Benign hypertension I10 Physical deconditioning R53.81 Goals of care, counseling/discussion Z71.89
[2023-08-03] MEDS: morphine 4 mg/mL SDV 1 mL IVP ×2 (20:18→22:48)
--- NOTE | 2023-08-03 20:26 | PC.NURSE ---
Pt complaining of pain, administered PRN morphine. Pt resting in bed, he appears pale. His skin is warm to the touch and he is diaphoretic. Pt does not complain of difficulty breathing, but is using accessory muscles to breathe.
--- NOTE | 2023-08-03 20:48 | PC.NURSE ---
Patient declined zosyn, insulin, and lovenox due to comfort care status.
[2023-08-04] VITALS (11 sets, daily range): PULSE 81–96; RESP 16–22; O2SAT 92–97
[2023-08-04] MEDS: morphine 4 mg/mL SDV 1 mL IVP ×7 (01:02→21:55)
[2023-08-04] MEDS: ondansetron 2 mg/ML SDV 2 mL 4 MG IVP (01:08)
--- NOTE | 2023-08-04 01:45 | PC.NURSE ---
Yyao Higgins at bedside. Discussed current plan of care, comfort measures, and weaning off of heated high flow oxygen to nasal cannula. All questions answered at this time, patient resting comfortably in bed with a pain score of 0.
--- NOTE | 2023-08-04 05:56 | PC.NURSE ---
Pt resting in bed, this nurse asked pt if he would like for us to start weaning the high flow oxygen or switch him to nasal cannula. Pt declined, stating No, I don't think so, I'm comfortable. This nurse provided reassurance and asked the patient to let staff know if he changed his mind.
[2023-08-04] MEDS: LORazepam 2 mg/mL INJ 10 mL MDV IVP ×4 (07:10→17:58)
[2023-08-04] MEDS: atropine 1% op soln 2 mL Btl 3 DROP SUBLINGUAL ×2 (09:22→21:02)
--- NOTE | 2023-08-04 11:01 | PC.NURSE ---
Pt placed on nasal cannula after discussing with son. Heated high flow removed and pt started on 2L NC.
--- NOTE | 2023-08-04 14:07 | P.PN_ITS ---
Subjective 2 Subjective: Patient was seen this morning, son is at bedside, currently on comfort care, patient does not respond to his name, does not awaken when I am at bedside, affect, and acute respiratory failure, receiving morphine, Ativan, son at bedside tells me that his pain is more under control, his respiratory distress more under control, discussed de-escalating his heated high flow, to nasal cannula, son is worried that the heated high flow helps more for his comfort, Vitals/I&O/Wt Last Vital Signs Temp 97.8 F 08/03/23 20:00 Pulse 90 08/04/23 08:47 Resp 16 08/04/23 12:51 BP 143/77 08/03/23 20:00 Pulse Ox 97 08/04/23 08:47 O2 Del Method Heated High Flow 08/03/23 20:00 O2 Flow Rate 40 08/04/23 08:47 FiO2 75 08/04/23 08:47 08/03/23 08/04/23 08/04/23 22:59 06:59 14:59 Intake Total 170 / 395 30 / 30 Output Total 1040 / 1040 650 / 1690 Balance -870 / -645 -650 / -1295 30 / 30 Weight last 48 hrs Weight 68.039 kg Weight 68.447 kg Physical Exam 2 Const: COMMON NORMALS: no acute distress GENERAL APPEARANCE: lethargic O RIENTATION/CONSCIOUSNESS: Yes awake, Yes patient obtunded and Yes lethargic; not oriented to person, not oriented to place and not oriented to time Neck/C-Spine: COMMON NORMALS: no JVD Resp: COMMON NORMALS: No use of accessory muscles EFFORT & INSPECTION: Yes abnormal respiratory pattern, Yes tachypneic and Yes respiratory distress Cardio: COMMON NORMALS: no JVD, regular rhythm, S1 normal heart sound present and S2 normal heart sound present RATE: tachycardic RHYTHM: regular rhythm HEART SOUNDS: S1 normal heart sound present and S2 normal heart sound present GI: COMMON NORMALS: Normal to inspection, nondistended, normoactive bowel sounds present and non-tender Extremity: COMMON NORMALS: no pedal edema Neuro: SENSORIUM/ORIENTATION: No oriented to person, No oriented to place, No oriented to time and Yes lethargic Urinary Catheter Management: Jeong: Cath Placed During This Visit: yes Reason for Continuing Indwelling Catheter: Acute Urinary Retention or Obstruction Urinary Catheter Date of Insertion: 07/31/23 Urinary Catheter Time of Insertion: 09:45 Data 08/03/23 03:29 08/03/23 03:29 A&P Assessment and plan (1) NSTEMI (non-ST elevated myocardial infarction): (2) Pulmonary edema: Qualifiers: Chronicity: acute Qualified Code(s): J81.0 - Acute pulmonary edema (3) Pneumonia: Qualifiers: Laterality: bilateral Lung location: unspecified part of lung P neumonia type: due to unspecified organism Qualified Code(s): J18.9 - Pneumonia, unspecified organism (4) Acute hypoxemic respiratory failure: (5) Altered mental status: Qualifiers: Altered mental status type: unspecified Qualified Code(s): R41.82 - Altered mental status, unspecified (6) Acute encephalopathy: (7) Acute respiratory distress syndrome: (8) Acute renal failure: (9) Ischemic cardiomyopathy: (10) Benign hypertension: (11) Physical deconditioning: (12) Goals of care, counseling/discussion: Plan Currently on comfort care 77-year-old male presenting today with altered mental status, acute respiratory distress, found to have bilateral diffuse infiltrates on chest x-ray 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 # Acute encephalopathy ? Likely secondary to pneumonia, acute respiratory failure, ischemic cardiomyopathy ? Monitor mentation closely # NSTEMI ? Concerns for type I NSTEMI, ischemic cardiomyopathy EKG showing ST segment depressions as noted above. Increasing troponin trend 38--> at 2 hours trended up to 160, trending up to 461 with positive delta's of 123 and 423. No known past history of coronary artery disease. Start Lovenox 1 mg/kg subcutaneously every 12 hours. Aspirin 81mg Start 75 mg p.o. daily once patient able to tolerate p.o. intake safely. Start atorvastatin 40 mg p.o. daily Echocardiogram CONCLUSIONS Multiple wall motion abnormalities with a diminished ejection fraction of 37%. Mildly increased left atrial size. Minimally thickened aortic and mitral valves. There is no pericardial effusion. There are no intracardiac masses. Technically somewhat difficult study because of poor ultrasonic window No similar previous studies are available for comparison Cardiology consultation ? After discussion with patient and family, proceed with medical interventions, declined acute intervention, if his condition starts to deteriorate, proceed with comfort care Acute renal failure, creatinine 2.1 ? Likely multifactorial from NSTEMI, respiratory failure, pneumonia, sepsis telemetry monitoring # Acute hypoxemic respiratory failure, secondary to pulmonary edema, pneumonia, acute renal failure Chest x-ray with diffuse bilateral infiltrates Likely multifactorial from pneumonia, pulmonary edema Lasix 20 mg IV x 1 early this morning, will give another 40 mg IV push Lasix Give another dose of 40 mg IV Lasix may need further doses depending on blood pressure and urine output response Place Jeong catheter to assess accurate output. Supplemental O2, currently on heated high flow Currently on heated high flow, declines BiPAP ? High aspiration risk, patient would like liquids for satiety, for dry mouth, for his quality of life, patient and family understand the morbidity and mortality associate with aspiration pneumonia aspiration pneumonitis, patient and family have excepted these risks, they voiced understanding, all questions answered given his poor prognosis I am going to allow him to have clear liquids for now with aspiration precautions, dysphagia level 4 # Pneumonia Leukocytosis, elevated lactate, acute hypoxemia may point towards developing sepsis. Source is likely pneumonia Continue with vancomycin, Zosyn Blood and urine cultures taken and pending # Diabetes mellitus: Insulin sliding scale while in the hospital. Hold OHA's. DVT prophylaxis: Currently on full dose Lovenox DNR/DNI Attestations 2 Medical Necessity Statement*: Patient requires hospitalization for comfort care, acute respiratory failure Diagnoses NSTEMI (non-ST elevated myocardial infarction) I21.4 Pulmonary edema J81.0 Chronicity: acute Pneumonia J18.9 Laterality: bilateral Lung location: unspecified part of lung Pneumonia type: due to unspecified organism Acute hypoxemic respiratory failure J96.01 Altered mental status R41.82 Altered mental status type: unspecified Acute encephalopathy G93.40 Acute respiratory distress syndrome J80 Acute renal failure N17.9 Ischemic cardiomyopathy I25.5 Benign hypertension I10 Physical deconditioning R53.81 Goals of care, counseling/discussion Z71.89
[2023-08-05] MEDS: morphine 4 mg/mL SDV 1 mL IVP ×6 (00:29→12:23)
[2023-08-05] MEDS: atropine 1% op soln 2 mL Btl 3 DROP SUBLINGUAL ×2 (00:30→07:48)
[2023-08-05] MEDS: glycopyrrolate 0.2 mg/mL SDV 2 mL 0.200000000000000011 MG IV (04:58)
[2023-08-05 05:19] VITALS: PULSE 89
[2023-08-05] MEDS: LORazepam 2 mg/mL INJ 10 mL MDV IVP ×2 (07:52→09:20)
[2023-08-05 08:22] VITALS: PULSE 91; RESP 22
--- NOTE | 2023-08-05 11:20 | PC.SOCIAL ---
IMM Update pg 2 of IMM not updated as patient is not A&O and is on comfort care. Copy left @ bedside.
--- NOTE | 2023-08-05 12:40 | PC.NURSE ---
Patient at this time. Verified by this nurse and Teresa RN. Patient family son and sister is at bedside. Patient's other son Kennedy does not want to be contacted anymore. Patient's other son Saad will be the contact point. [phone].
--- NOTE | 2023-08-05 12:49 | P.PN_ITS ---
Subjective 2 Subjective: Patient was seen this morning, nonresponsive, on 2 L, resting in mild respiratory distress, intercostal retractions nasal flaring, tachypnea, tachycardia, no family members at bedside, Vitals/I&O/Wt Last Vital Signs Temp 97.8 F 08/03/23 20:00 Pulse 91 08/05/23 08:22 Resp 22 H 08/05/23 08:22 BP 143/77 08/03/23 20:00 Pulse Ox 97 08/04/23 08:47 O2 Del Method Nasal Cannula 08/05/23 08:22 O2 Flow Rate 40 08/04/23 08:47 FiO2 75 08/04/23 08:47 08/04/23 08/05/23 08/05/23 22:59 06:59 14:59 Intake Total 0 / 30 0 / 30 Output Total 250 / 250 50 / 300 Balance -250 / -220 -50 / -270 Weight last 48 hrs Weight 66.224 kg Weight 68.039 kg Physical Exam 2 Const: EXAM LIMITATIONS: altered mental status GENERAL APPEARANCE: l ethargic ORIENTATION/CONSCIOUSNESS: Yes awake, Yes confused, Yes patient obtunded and Yes lethargic; not oriented to person, not oriented to place and not oriented to time HENMT: COMMON NORMALS: normocephalic HEAD & SCALP: normocephalic Resp: EFFORT & INSPECTION: Yes abnormal respiratory pattern, Yes tachypneic, Yes respiratory distress and Yes retractions AUSCULTATION: crackles Cardio: COMMON NORMALS: regular rhythm, S1 normal heart sound present and S2 normal heart sound present RATE: tachycardic RHYTHM: regular rhythm H EART SOUNDS: S1 normal heart sound present and S2 normal heart sound present GI: COMMON NORMALS: Normal to inspection, nondistended, normoactive bowel sounds present and no bruits Extremity: COMMON NORMALS: no pedal edema Neuro: SENSORIUM/ORIENTATION: No oriented to person, No oriented to place, No oriented to time and Yes lethargic Urinary Catheter Management: Jeong: Cath Placed During This Visit: yes Reason for Continuing Indwelling Catheter: Hospice/Comfort/Palliative Care Urinary Catheter Date of Insertion: 07/31/23 Urinary Catheter Time of Insertion: 09:45 Data 08/03/23 03:29 08/03/23 03:29 Micro: Microbiology 07/30/23 22:48 Blood Culture - Final Blood NO GROWTH AFTER 5 DAYS 07/30/23 22:41 Blood Culture - Final Blood NO GROWTH AFTER 5 DAYS A&P Assessment and plan (1) NSTEMI (non-ST elevated myocardial infarction): (2) Pulmonary edema: Qualifiers: Chronicity: acute Qualified Code(s): J81.0 - Acute pulmonary edema (3) Pneumonia: Qualifiers: Laterality: bilateral Lung location: unspecified part of lung P neumonia type: due to unspecified organism Qualified Code(s): J18.9 - Pneumonia, unspecified organism (4) Acute hypoxemic respiratory failure: (5) Altered mental status: Qualifiers: Altered mental status type: unspecified Qualified Code(s): R41.82 - Altered mental status, unspecified (6) Acute encephalopathy: (7) Acute respiratory distress syndrome: (8) Acute renal failure: (9) Ischemic cardiomyopathy: (10) Benign hypertension: (11) Physical deconditioning: (12) Goals of care, counseling/discussion: Plan Currently on comfort care 77-year-old male presenting today with altered mental status, acute respiratory distress, found to have bilateral diffuse infiltrates on chest x-ray 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 # Acute encephalopathy ? Likely secondary to pneumonia, acute respiratory failure, ischemic cardiomyopathy ? Monitor mentation closely # NSTEMI ? Concerns for type I NSTEMI, ischemic cardiomyopathy EKG showing ST segment depressions as noted above. Increasing troponin trend 38--> at 2 hours trended up to 160, trending up to 461 with positive delta's of 123 and 423. No known past history of coronary artery disease. Start Lovenox 1 mg/kg subcutaneously every 12 hours. Aspirin 81mg Start 75 mg p.o. daily once patient able to tolerate p.o. intake safely. Start atorvastatin 40 mg p.o. daily Echocardiogram CONCLUSIONS Multiple wall motion abnormalities with a diminished ejection fraction of 37%. Mildly increased left atrial size. Minimally thickened aortic and mitral valves. There is no pericardial effusion. There are no intracardiac masses. Technically somewhat difficult study because of poor ultrasonic window No similar previous studies are available for comparison Cardiology consultation ? After discussion with patient and family, proceed with medical interventions, declined acute intervention, if his condition starts to deteriorate, proceed with comfort care Acute renal failure, creatinine 2.1 ? Likely multifactorial from NSTEMI, respiratory failure, pneumonia, sepsis telemetry monitoring # Acute hypoxemic respiratory failure, secondary to pulmonary edema, pneumonia, acute renal failure Chest x-ray with diffuse bilateral infiltrates Likely multifactorial from pneumonia, pulmonary edema Lasix 20 mg IV x 1 early this morning, will give another 40 mg IV push Lasix Give another dose of 40 mg IV Lasix may need further doses depending on blood pressure and urine output response Place Jeong catheter to assess accurate output. Supplemental O2, currently on heated high flow Currently on heated high flow, declines BiPAP ? High aspiration risk, patient would like liquids for satiety, for dry mouth, for his quality of life, patient and family understand the morbidity and mortality associate with aspiration pneumonia aspiration pneumonitis, patient and family have excepted these risks, they voiced understanding, all questions answered given his poor prognosis I am going to allow him to have clear liquids for now with aspiration precautions, dysphagia level 4 # Pneumonia Leukocytosis, elevated lactate, acute hypoxemia may point towards developing sepsis. Source is likely pneumonia Continue with vancomycin, Zosyn Blood and urine cultures taken and pending # Diabetes mellitus: Insulin sliding scale while in the hospital. Hold OHA's. DVT prophylaxis: Currently on full dose Lovenox DNR/DNI Attestations 2 Medical Necessity Statement*: Patient requires hospitalization for comfort care Diagnoses NSTEMI (non-ST elevated myocardial infarction) I21.4 Pulmonary edema J81.0 Chronicity: acute Pneumonia J18.9 Laterality: bilateral Lung location: unspecified part of lung Pneumonia type: due to unspecified organism Acute hypoxemic respiratory failure J96.01 Altered mental status R41.82 Altered mental status type: unspecified Acute encephalopathy G93.40 Acute respiratory distress syndrome J80 Acute renal failure N17.9 Ischemic cardiomyopathy I25.5 Benign hypertension I10 Physical deconditioning R53.81 Goals of care, counseling/discussion Z71.89
--- NOTE | 2023-08-05 13:01 | P.DES_ITS ---
Discharge Providers DDS Date of Admission: 07/30/23 23:45 Date Summary Completed: 08/05/23 Attending Provider at Admission: Tammie Chopra MD Time of : 12:40 Attending Provider at Discharge: José Luis Connor MD DS Diagnoses Hospital Diagnoses (1) NSTEMI (non-ST elevated myocardial infarction): (2) Pulmonary edema: Qualifiers: Chronicity: acute Qualified Code(s): J81.0 - Acute pulmonary edema (3) Pneumonia: Qualifiers: Laterality: bilateral Lung location: unspecified part of lung Pneumonia type: due to unspecified organism Qualified Code(s): J18.9 - Pneumonia, unspecified organism (4) Acute hypoxemic respiratory failure: (5) Altered mental status: Qualifiers: Altered mental status type: unspecified Qualified Code(s): R41.82 - Altered mental status, unspecified (6) Acute encephalopathy: (7) Acute respiratory distress syndrome: (8) Acute renal failure: (9) Ischemic cardiomyopathy: (10) Benign hypertension: (11) Physical deconditioning: (12) Goals of care, counseling/discussion: Reason for Visit Reason for Visit Resp Distress Summary Date and Time of Date of : 08/05/23 Time of : 12:40 Summary Summary: Eduard Higgins is a 77 year old male shelter resident, history of recurrent TIAs, shelter resident, diabetes mellitus was brought to the emergency room today via EMS due to a change in mental status and respiratory distress. At the time the patient was evaluated by EMS he was noted to be in respiratory distress. They needed to [id number] upon initial arrival, his O2 saturations were in the 50s. They had to place him on a BiPAP as patient is a DNR/DNI. Patient was apparently in his usual state of health until yesterday. Patient has a history of CVAs/TIA and has some issues with aphasia, but per history from son he is able to communicate. He was eventually able to be weaned down to nonrebreather at 15 L with O2 sat maintained at 90%. Patient is unable to participate in any history taking. Unknown if he has recently been ill. His EKGs were noted to have diffuse ST depression in leads I,II, v5, v6. Per patient's son there is no known history of heart disease. No history of CAD. Patient's troponin has been trending up during the course. Baseline troponin was at 38, at 2 hours trended up to 160, trending up to 461 with positive delta's of 123 and 423. HE had elevated lactate 6.6, leukocytosis of 15,000. ROS + for vomiting. Patient had vomited after being placed on BiPAP in the emergency room. He is therefore not being placed back on BiPAP. Currently on heated high flow. This is a 77-year-old male who presents to [facility] for acute hypoxic respiratory failure with acute respiratory distress syndrome, with acute encephalopathy, NSTEMI, ischemic cardiomyopathy, acute renal failure, pneumonia, sepsis. Patient was monitored as inpatient, received broad-spectrum antibiotic therapy, IV diuresis, anticoagulant therapy, antiplatelet therapy, oxygen therapy, cardiology was consulted. After discussion with patient and family about goals of care, patient and family elected against aggressive measures, declined coronary intervention, patient was a DNR/DNI, agreed for medical management. Patient was medically managed as inpatient, unfortunately despite optimal medical therapy, his clinical condition deteriorated, with worsening respiratory failure, acute renal failure, encephalopathy, pneumonia, sepsis, fluid overload, ischemic cardiomyopathy, systolic diastolic CHF exacerbation. After detailed discussion with patient's family about goals of care, patient's family elected for comfort care, after discussing risks and benefits, they voiced understanding, all questions answered, agreed to proceed with comfort care, patient was made comfort care, time of 08/05/2023 at 12:40 PM Additional Data Confirmation of as documented by pronouncing clinician: no pulse, no respirations and no heart sounds Family: contacted Additional persons at bedside: nursing staff Attending/PCP notified?: I am attending Was code activated?: No Autopsy requested?: No Advance directives?: No Discharge Plan Discharge Patient Disposition: Condition: Prescriptions: No Action pravastatin 40 mg tablet 40 mg PO BEDTIME clopidogrel 75 mg tablet 75 mg PO DAILY (DME) FreeStyle Heaven 2 [place] Misc See Rx Instructions .Route Qty: 1 0RF Rx Instructions: Check BS 4 times a day. (DME) FreeStyle Heaven 2 Sensor Kit See Rx Instructions .Route Qty: 1 3RF Rx Instructions: Change every 14 days. aspirin 325 mg Tablet 325 mg PO QAM metoprolol tartrate 100 mg tablet 100 mg PO BID Rx Instructions: HOLD FOR SYSTOLIC<100 OR P<60 Milk of Magnesia 400 mg/5 mL Suspension 30 ml PO DAILY PRN (Reason: Constipation) amlodipine 10 mg tablet 10 mg PO DAILY Rx Instructions: HOLD IF SBP<100 OR P<60 hydrochlorothiazide 25 mg tablet 50 mg PO DAILY Miralax 17 gram/dose Powder See Rx Instructions .ROUTE .COMPLEX PRN (Reason: Constipation) Rx Instructions: TAKE 17G IN 8 OUNCES OF JUICE OR WATER ONCE DAILY NEEDED FOR CONSTIPATION. fluticasone propionate 50 mcg/actuation spray,suspension 1 spray INTRANASAL BID docusate sodium 100 mg Tablet 200 mg PO BEDTIME Claritin 10 mg Tablet 10 mg PO DAILY Novolog FlexPen U-100 Insulin 100 unit/mL (3 mL) insulin pen See Rx Instructions .ROUTE .COMPLEX Rx Instructions: INJECT PER SLIDING SCALE FOLLOWS: BS 150-200=3 UNITS, 201-250=5 UNITS, 251-300=7 UNITS, 301-350= 9 UNITS, 351-400= 11 UNITS WITH MEALS. Basaglar KwikPen U-100 Insulin 100 unit/mL (3 mL) insulin pen 30 unit SUBCUT BEDTIME Jardiance 25 mg tablet 25 mg PO QAM acetaminophen 325 mg Tablet 650 mg PO Q4H PRN (Reason: Pain, Moderate) potassium chloride 20 mEq tablet,ER particles/crystals 20 meq PO DAILY TwoCal HN Liquid 1 ea PO TID Referrals: [facility] [Family Provider] - Discharge Diet: As Directed DS Attestations Time Spent in /Discharge Care*: greater than 30 min Quality - AMI: AMI present?: No Quality - Stroke: CVA present?: No Quality - VTE: VTE present?: No Deep Vein Thrombosis/Pulmonary Embolism Present on Admission: No Coding Level of Care Code 30045 Total time (in minutes) for Discharge: 45 Diagnoses NSTEMI (non-ST elevated myocardial infarction) I21.4 Pulmonary edema J81.0 Chronicity: acute Pneumonia J18.9 Laterality: bilateral Lung location: unspecified part of lung Pneumonia type: due to unspecified organism Acute hypoxemic respiratory failure J96.01 Altered mental status R41.82 Altered mental status type: unspecified Acute encephalopathy G93.40 Acute respiratory distress syndrome J80 Acute renal failure N17.9 Ischemic cardiomyopathy I25.5 Benign hypertension I10 Physical deconditioning R53.81 Goals of care, counseling/discussion Z71.89
--- NOTE | 2023-08-05 13:45 | PC.NURSE ---
Patient on comfort care and is unresponsive
[2023-08-05 13:57] VITALS: PULSE 0; RESP 0; TEMP -17.7; TEMP 0
--- NOTE | 2023-08-05 13:58 | PC.NURSE ---
Patient at 1240
== END 2023-08-05 13:45 | disposition expired | DRG 871 ==
LOC: ER 07-31 00:01 → MEDSURG 07-31 00:09
PROVIDERS: Admitting Provider Student in an Organized Health Care Education/Training Program; Emergency Provider Emergency Medicine; Visit Provider Family Medicine
DX: A41.9 Sepsis, unspecified organism (principal); I21.4 Non-ST elevation (NSTEMI) myocardial infarction; J18.9 Pneumonia, unspecified organism; J80 Acute respiratory distress syndrome; I50.43 Acute on chronic combined systolic (congestive) and diastolic (congestive) heart failure; G93.40 Encephalopathy, unspecified; N17.9 Acute kidney failure, unspecified; I13.0 Hypertensive heart and chronic kidney disease with heart failure and stage 1 through stage 4 chronic kidney disease, or unspecified chronic kidney disease; E11.65 Type 2 diabetes mellitus with hyperglycemia; Z79.4 Long term (current) use of insulin; Z66 Do not resuscitate; Z86.73 Personal history of transient ischemic attack (TIA), and cerebral infarction without residual deficits; Z87.891 Personal history of nicotine dependence; E78.5 Hyperlipidemia, unspecified; I25.5 Ischemic cardiomyopathy; Z51.5 Encounter for palliative care; N18.31 Chronic kidney disease, stage 3a; E11.22 Type 2 diabetes mellitus with diabetic chronic kidney disease
CPT/HCPCS: 36415; 36416; 36600; 51702; 70450; 71045; 74177; 80048; 80051; 80053; 82009; 82330; 82805; 82962; 83605; 83735; 83880; 84145; 84484; 85025; 85610; 86140; 86403; 87040; 87486; 87581; 87633; 92526; 92610; 93005; 93306; 93970; 94640; 94660; 94664; 96372; J1650; J1815; J1940; J2060; J2270; J2405; J2543; J2919; J3370; J3480; J3490; J7050; Q9967